=== PATIENT | female | born 1960 | race African-American/Black ===

== ENCOUNTER 2019-02-13 04:26 | Emergency (ER) | payer MEDICAID ==
[~2019-02-13] VITALS: Ht 167.6 cm; Wt 72.6 kg
[2019-02-13 05:27] LABS: Basophils # (auto) 0.1 uL; Basophils % (auto) 1.8 % (0.0-2.0); Eosinophils # (auto) 0.3 uL; Eosinophils % (auto) 4.9 % (0.0-7.0); Hematocrit 40.3 % (36.0-46.0); Hemoglobin 13.7 g/dL (12.2-16.2); Lymphocytes # (auto) 2.6 uL; Mean Corpuscular Hgb Conc. 33.9 g/dL (32.0-36.0); Mean Corpuscular Volume 91.6 fL (80.0-100.0); Monocytes # (auto) 0.7 uL; Monocytes % (auto) 12.5 % (0.0-12.0); Neutrophils # (auto) 2.3 uL; Neutrophils % (auto) 37.8 % (37.0-80.0); Nucleated Red Blood Cells % 0.1 %; Platelet Count (auto) 256 10^3/uL (140-450)
[2019-02-13 05:46] LABS: Alanine Aminotransferase 24 U/L (13-56); Albumin 3.6 g/dL (3.4-5.0); Anion Gap 7 (5-15); Aspartate Aminotransferase 13 U/L (15-37); Blood Urea Nitrogen 18 mg/dL (7-18); Calcium 8.3 mg/dL (8.5-10.1); Carbon Dioxide 26 mmol/L (21-32); Chloride 106 mmol/L (98-107); GFR African American 82 mL/min; GFR Non-African American 68 mL/min; Glucose 95 mg/dL (74-106); Magnesium 2.2 mg/dL (1.6-2.6); Potassium 3.5 mmol/L (3.5-5.1); Sodium 139 mmol/L (136-145)
[2019-02-13 05:51] LABS: Alkaline Phosphatase 62 U/L (45-117); Bilirubin, Total 0.5 mg/dL (0.2-1.0); Total Protein 6.7 g/dL (6.4-8.2)
[2019-02-13 08:13] LABS: Urine Bacteria FEW /hpf (None Seen); Urine Blood Negative /uL (Negative); Urine Hyaline Cast FEW /lpf (0 - 2); Urine Specific Gravity 1.015 (1.001-1.035); Urine WBC 3 /hpf (0 - 5)
[2019-02-13] MEDS ORDERED: MORPHINE SULF INJ 2 MG/ML SYRINGE 1ML IV ONE (08:15)
[2019-02-13] MEDS ORDERED: ONDANSETRON HCL 4 MG/2 ML VIAL IV ONE (08:15)
[2019-02-13 11:30] VITALS: BP 134/87
== END 2019-02-13 13:11 | disposition home or self-care (01) ==
LOC: EDUNIT# 04:26 → EDBD 04:26 → ER 04:26
DX: R07.89 Other chest pain (principal); M94.0 Chondrocostal junction syndrome [Tietze]; I10 Essential (primary) hypertension; Z88.0 Allergy status to penicillin
CPT/HCPCS: 36415; 71045; 80053; 81001; 83735; 83880; 84484; 85025; 93005; 96374; 96375; 99284; J2270; J2405

== ENCOUNTER 2019-04-05 11:24 | Emergency (ER) | payer MEDICAID ==
[~2019-04-05] VITALS: Ht 172.7 cm; Wt 106.6 kg
[2019-04-05] MEDS ORDERED: cloNIDine HCL 0.1 MG TAB PO ONE (11:30)
[2019-04-05 12:48] LABS: Basophils # (auto) 0.1 uL; Eosinophils # (auto) 0.1 uL; Eosinophils % (auto) 1.6 % (0.0-7.0); Hematocrit 44.2 % (36.0-46.0); Hemoglobin 14.3 g/dL (12.2-16.2); Lymphocytes # (auto) 1.9 uL; Lymphocytes % (auto) 36.3 % (10.0-50.0); Mean Corpuscular Hemoglobin 30.7 pg (28.0-32.0); Mean Corpuscular Hgb Conc. 32.4 g/dL (32.0-36.0); Monocytes # (auto) 0.4 uL; Monocytes % (auto) 7.7 % (0.0-12.0); Neutrophils # (auto) 2.8 uL; Neutrophils % (auto) 53.4 % (37.0-80.0); Nucleated Red Blood Cells % 0.1 %; Platelet Count (auto) 302 10^3/uL (140-450); Red Blood Cells 4.66 10^6/uL (4.0-5.20); White Blood Cell 5.3 10^3/uL (4.4-10.8)
[2019-04-05 13:18] VITALS: BP 136/88
[2019-04-05 13:38] LABS: Albumin 3.7 g/dL (3.4-5.0); Anion Gap 4 (5-15); Blood Urea Nitrogen 16 mg/dL (7-18); Carbon Dioxide 29 mmol/L (21-32); Chloride 106 mmol/L (98-107); Glucose 143 mg/dL (74-106); Potassium 3.9 mmol/L (3.5-5.1); Sodium 139 mmol/L (136-145)
[2019-04-05 13:43] LABS: Alanine Aminotransferase 26 U/L (13-56); Alkaline Phosphatase 64 U/L (45-117); Aspartate Aminotransferase 18 U/L (15-37); Bilirubin, Total 0.4 mg/dL (0.2-1.0); GFR African American 89 mL/min; GFR Non-African American 74 mL/min; Total Protein 7.3 g/dL (6.4-8.2)
[2019-04-05 14:13] LABS: Urine Bacteria NONE SEEN /hpf (None Seen); Urine Blood Negative /uL (Negative); Urine Mucus FEW (None Seen); Urine Specific Gravity 1.022 (1.001-1.035); Urine WBC 9 /hpf (0 - 5)
== END 2019-04-05 14:47 | disposition home or self-care (01) ==
LOC: EDBD 11:24 → ER 11:27
DX: R42 Dizziness and giddiness (principal); I10 Essential (primary) hypertension; J45.909 Unspecified asthma, uncomplicated
CPT/HCPCS: 36415; 70450; 71045; 80053; 81001; 84484; 85025

== ENCOUNTER 2020-07-14 07:13 | Emergency (ER) | payer MEDICARE, MEDICAID ==
[~2020-07-14] VITALS: Ht 172.7 cm; Wt 93.0 kg
[2020-07-14 08:57] LABS: Basophils # (auto) 0.1 10 ^3/uL (0-0.2); Basophils % (auto) 0.9 % (0.0-2.0); Eosinophils # (auto) 0.2 10 ^3/uL (0-0.8); Eosinophils % (auto) 3.1 % (0.0-7.0); Hematocrit 42.6 % (36.0-46.0); Hemoglobin 13.9 g/dL (12.2-16.2); Lymphocytes # (auto) 2.8 10 ^3/uL (0.4-5.4); Lymphocytes % (auto) 48.7 % (10.0-50.0); Mean Corpuscular Hemoglobin 30.8 pg (28.0-32.0); Mean Corpuscular Hgb Conc. 32.7 g/dL (32.0-36.0); Mean Corpuscular Volume 94.4 fL (80.0-100.0); Monocytes # (auto) 0.6 10 ^3/uL (0-1.3); Monocytes % (auto) 10.8 % (0.0-12.0); Neutrophils # (auto) 2.1 10 ^3/uL (1.6-8.6); Neutrophils % (auto) 36.5 % (37.0-80.0); Nucleated Red Blood Cells % 0.2 %; Platelet Count (auto) 363 10^3/uL (140-450); Red Blood Cells 4.51 10^6/uL (4.0-5.20); White Blood Cell 5.8 10^3/uL (4.4-10.8)
[2020-07-14 09:22] LABS: Albumin 3.5 g/dL (3.4-5.0); Anion Gap 9 (5-15); Blood Urea Nitrogen 21 mg/dL (7-18); Calcium 8.9 mg/dL (8.5-10.1); Carbon Dioxide 26 mmol/L (21-32); Chloride 106 mmol/L (98-107); Glucose 114 mg/dL (74-106); Potassium 3.5 mmol/L (3.5-5.1); Sodium 141 mmol/L (136-145)
[2020-07-14 09:30] LABS: Alanine Aminotransferase 21 U/L (13-56); Alkaline Phosphatase 52 U/L (45-117); Aspartate Aminotransferase 14 U/L (15-37); BUN/Creatinine Ratio 22.6; Bilirubin, Total 0.3 mg/dL (0.2-1.0); GFR African American 79 mL/min; GFR Non-African American 65 mL/min; Total Protein 7.1 g/dL (6.4-8.2)
[2020-07-14 10:49] VITALS: BP 106/72
== END 2020-07-14 10:35 | disposition home or self-care (01) ==
LOC: ER 07:13
DX: F41.9 Anxiety disorder, unspecified (principal); J45.909 Unspecified asthma, uncomplicated; I10 Essential (primary) hypertension; Z88.0 Allergy status to penicillin; Z20.822 Contact with and (suspected) exposure to COVID-19
CPT/HCPCS: 36415; 71046; 80053; 84484; 85025; 87426; 93005

== ENCOUNTER 2020-09-26 06:03 | Inpatient (IN) | payer MEDICARE, MEDICAID ==
[~2020-09-26] VITALS: Ht 172.7 cm; Wt 103.0 kg
[2020-09-26 07:13] LABS: Basophils # (auto) 0 10 ^3/uL (0-0.2); Basophils % (auto) 0.6 % (0.0-2.0); Eosinophils # (auto) 0.2 10 ^3/uL (0-0.8); Eosinophils % (auto) 3.2 % (0.0-7.0); Hemoglobin 13.4 g/dL (12.2-16.2); Lymphocytes # (auto) 2.3 10 ^3/uL (0.4-5.4); Lymphocytes % (auto) 31.8 % (10.0-50.0); Mean Corpuscular Hemoglobin 32.1 pg (28.0-32.0); Mean Corpuscular Hgb Conc. 34.4 g/dL (32.0-36.0); Mean Corpuscular Volume 93.3 fL (80.0-100.0); Monocytes # (auto) 0.8 10 ^3/uL (0-1.3); Monocytes % (auto) 10.7 % (0.0-12.0); Neutrophils # (auto) 3.9 10 ^3/uL (1.6-8.6); Neutrophils % (auto) 53.7 % (37.0-80.0); Nucleated Red Blood Cells % 0.1 %; Platelet Count (auto) 400 10^3/uL (140-450); Red Blood Cells 4.18 10^6/uL (4.0-5.20); Red Cell Distribution Width 12.6 % (11.8-14.3); White Blood Cell 7.3 10^3/uL (4.4-10.8)
[2020-09-26 07:29] LABS: Chloride 113 mmol/L (98-107); Potassium 3.6 mmol/L (3.5-5.1); Sodium 142 mmol/L (136-145)
[2020-09-26 07:45] LABS: Alanine Aminotransferase 23 U/L (13-56); Albumin 3.4 g/dL (3.4-5.0); Alkaline Phosphatase 55 U/L (45-117); Anion Gap 5 (5-15); Aspartate Aminotransferase 16 U/L (15-37); BUN/Creatinine Ratio 27.5; Bilirubin, Total 0.4 mg/dL (0.2-1.0); Blood Urea Nitrogen 22 mg/dL (7-18); Calcium 8.4 mg/dL (8.5-10.1); Carbon Dioxide 24 mmol/L (21-32); GFR African American 94 mL/min; GFR Non-African American 78 mL/min; Glucose 108 mg/dL (74-106); Total Protein 6.9 g/dL (6.4-8.2)
[2020-09-26] MEDS ORDERED: FUROSEMIDE 40 MG/4 ML VIAL IV ONE (07:45)
[2020-09-26 09:06] LABS: Urine Bacteria MOD /hpf (None Seen); Urine Blood TRACE /uL (Negative); Urine Specific Gravity 1.013 (1.001-1.035); Urine WBC 261 /hpf (0 - 5)
[2020-09-26] MEDS ORDERED: ACETAMINOPHEN 500 MG TAB PO PRN (10:15)
[2020-09-26] MEDS ORDERED: MORPHINE SULF INJ 2 MG/ML SYRINGE 1ML IV PRN (10:15)
[2020-09-26] MEDS ORDERED: HYDROcodone-ACET 5/325MG TAB PO PRN (10:15)
[2020-09-26] MEDS ORDERED: IPRATROPIUM BROM 0.5 MG/2.5ML INH SOL NEB ONE (10:15)
[2020-09-26] MEDS ORDERED: ALBUTEROL SULF 2.5 MG/0.5ML(0.5%) NEB SOLN NEB ONE (10:15)
[2020-09-26] MEDS ORDERED: ONDANSETRON HCL 4 MG/2 ML VIAL IV PRN (10:15)
[2020-09-26] MEDS ORDERED: DOCUSATE SOD 100 MG CAP PO PRN (10:15)
[2020-09-26] MEDS ORDERED: methylPREDNISolone SOD SUCC 125 MG/2 ML VL IV ONE (10:15)
[2020-09-26] MEDS ORDERED: NITROGLYCERIN 0.4 MG SL TAB SL PRN (10:15)
[2020-09-26] MEDS: cefTRIAXone 1GM/50ML D5W 50 ML IV SCH (10:28)
[2020-09-26 10:52] LABS: Barbiturate Scree,Urine NEGATIVE (NEGATIVE); Benzodiazephine Screen, Urine NEGATIVE (NEGATIVE); Cannabinoid Screen, Urine NEGATIVE (NEGATIVE); Cocaine Screen, Urine NEGATIVE (NEGATIVE); Opiate Scree,Urine POSITIVE (NEGATIVE); Phencyclidine Screen, Urine NEGATIVE (NEGATIVE)
[2020-09-26 11:00] LABS: Cholesterol 180 mg/dL (< 200); HDL Cholesterol 53 mg/dL (40-59); LDL Cholesterol 111 mg/dL (< 100); Triglycerides 160 mg/dL (< 150)
[2020-09-26 11:03] LABS: Amphetamine Screen, Urine NEGATIVE (NEGATIVE)
[2020-09-26 11:07] VITALS: BP 122/71
[2020-09-26] MEDS: IPRATROPIUM BROM 0.5 MG/2.5ML INH SOL NEB SCH ×2 (11:27→19:10)
[2020-09-26] MEDS: ALBUTEROL SULF 2.5 MG/0.5ML(0.5%) NEB SOLN NEB SCH ×2 (11:27→19:09)
[2020-09-26 12:00] VITALS: BP 122/71
[2020-09-26 17:30] VITALS: BP 142/75
[2020-09-26] MEDS ORDERED: METO25TA93 PO (17:52)
[2020-09-26] MEDS ORDERED: AMLO-489 PO (17:52)
[2020-09-26] MEDS ORDERED: FURO20TA3 PO (17:52)
[2020-09-26] MEDS ORDERED: HYDR-4798 PO (17:52)
[2020-09-26] MEDS ORDERED: LOSA-39 PO (17:52)
[2020-09-26] MEDS ORDERED: CLON0.2D6 PO (17:52)
[2020-09-26] MEDS: HYDROcodone-ACET 10/325MG TAB PO PRN (18:52)
[2020-09-26] MEDS: BUDESONIDE (INHALATION) 0.5 MG/2 ML NEB NEB SCH (19:09)
[2020-09-26] MEDS ORDERED: hydrALAZINE HCL 20 MG/ML VL IV PRN (19:30)
[2020-09-26 22:00] VITALS: BP 115/65
[2020-09-26] MEDS: MORPHINE SULF INJ 2 MG/ML SYRINGE 1ML IV PRN (23:41)
[2020-09-27] MEDS: HYDROcodone-ACET 10/325MG TAB PO PRN ×4 (01:36→17:34)
[2020-09-27] MEDS: MORPHINE SULF INJ 2 MG/ML SYRINGE 1ML IV PRN (06:23)
[2020-09-27] MEDS: ALBUTEROL SULF 2.5 MG/0.5ML(0.5%) NEB SOLN NEB SCH ×3 (07:21→18:13)
[2020-09-27] MEDS: IPRATROPIUM BROM 0.5 MG/2.5ML INH SOL NEB SCH ×3 (07:21→18:13)
[2020-09-27] MEDS: BUDESONIDE (INHALATION) 0.5 MG/2 ML NEB NEB SCH ×2 (07:22→18:13)
[2020-09-27 09:00] VITALS: BP 133/75
[2020-09-27] MEDS ORDERED: cloNIDine HCL 0.1 MG TAB PO ONE (10:00)
[2020-09-27] MEDS: cefTRIAXone 1GM/50ML D5W 50 ML IV SCH (10:08)
[2020-09-27] MEDS: FUROSEMIDE 20 MG TAB PO SCH (10:09)
[2020-09-27] MEDS: METOPROLOL SUCCINATE XL 50 MG TAB PO SCH (10:10)
[2020-09-27] MEDS: LOSARTAN POTASSIUM 50 MG TAB PO SCH (10:10)
[2020-09-27] MEDS: cloNIDine HCL 0.1 MG TAB PO SCH (10:12)
[2020-09-27] MEDS: FAMOTIDINE 20 MG TAB PO SCH (10:12)
[2020-09-27] MEDS: amLODIPine BESYLATE 5 MG TAB PO SCH (10:12)
[2020-09-27] MEDS ORDERED: methylPREDNISolone SOD SUCC 125 MG/2 ML VL IV ONE (11:00)
[2020-09-27] MEDS ORDERED: AZITHROMYCIN 250 MG TAB PO ONE (11:00)
[2020-09-27 13:00] VITALS: BP 117/79
[2020-09-27 17:00] VITALS: BP 115/65
[2020-09-27] MEDS: methylPREDNISolone SOD SUCC 40 MG/ML VL IV SCH (21:18)
[2020-09-27 22:00] VITALS: BP 127/71
[2020-09-28] MEDS: HYDROcodone-ACET 10/325MG TAB PO PRN ×2 (02:38→09:03)
[2020-09-28 05:00] VITALS: BP 141/81
[2020-09-28 05:56] LABS: Calcium 9.2 mg/dL (8.5-10.1); Potassium 3.8 mmol/L (3.5-5.1)
[2020-09-28 05:58] LABS: BUN/Creatinine Ratio 28.6
[2020-09-28] MEDS: IPRATROPIUM BROM 0.5 MG/2.5ML INH SOL NEB SCH (06:29)
[2020-09-28] MEDS: BUDESONIDE (INHALATION) 0.5 MG/2 ML NEB NEB SCH (06:30)
[2020-09-28] MEDS: ALBUTEROL SULF 2.5 MG/0.5ML(0.5%) NEB SOLN NEB SCH (06:30)
[2020-09-28 08:36] VITALS: BP 154/97
[2020-09-28] MEDS: FAMOTIDINE 20 MG TAB PO SCH (09:06)
[2020-09-28] MEDS: FUROSEMIDE 20 MG TAB PO SCH (09:07)
[2020-09-28] MEDS: cloNIDine HCL 0.1 MG TAB PO SCH ×2 (09:07→10:07)
[2020-09-28] MEDS: amLODIPine BESYLATE 5 MG TAB PO SCH (09:08)
[2020-09-28] MEDS: cefTRIAXone 1GM/50ML D5W 50 ML IV SCH (09:09)
[2020-09-28] MEDS: LOSARTAN POTASSIUM 50 MG TAB PO SCH (09:09)
[2020-09-28] MEDS: METOPROLOL SUCCINATE XL 50 MG TAB PO SCH (09:09)
[2020-09-28] MEDS ORDERED: AZITHROMYCIN 250 MG TAB PO SCH (10:00)
[2020-09-28 10:56] VITALS: BP 154/97
[2020-09-28] MEDS: methylPREDNISolone SOD SUCC 40 MG/ML VL IV SCH (13:16)
== END 2020-09-28 11:30 | disposition home or self-care (01) | DRG 291 ==
LOC: ER 06:03 → TELE 10:09 → TELE-CENTR 11:51
PROVIDERS: ADMIT Nurse Practitioner Acute Care; ATTEND Internal Medicine
DX: I11.0 Hypertensive heart disease with heart failure (principal); J18.9 Pneumonia, unspecified organism; I50.31 Acute diastolic (congestive) heart failure; J44.1 Chronic obstructive pulmonary disease with (acute) exacerbation; N39.0 Urinary tract infection, site not specified; J44.0 Chronic obstructive pulmonary disease with (acute) lower respiratory infection; E66.9 Obesity, unspecified; G89.29 Other chronic pain; M19.90 Unspecified osteoarthritis, unspecified site; Z20.822 Contact with and (suspected) exposure to COVID-19; Z86.711 Personal history of pulmonary embolism; Z91.14 Patient's other noncompliance with medication regimen; Z86.16 Personal history of COVID-19; Z72.0 Tobacco use; Z88.0 Allergy status to penicillin; Z68.32 Body mass index [BMI] 32.0-32.9, adult
CPT/HCPCS: 36415; 71045; 80048; 80053; 80061; 80307; 81001; 83036; 83880; 84443; 84484; 85025; 85379; 85652; 87086; 87426; 93005; 93306; 93970; 94640; 96365; 96375; G0378; J0696

== ENCOUNTER 2020-12-26 22:31 | Emergency (ER) | payer OTHER, MEDICAID ==
[~2020-12-26] VITALS: Ht 170.2 cm; Wt 120.2 kg
[2020-12-26 22:31] VITALS: BP 141/92
[~2020-12-26 22:31] MED LIST: AMLO-489 PO; CLON0.2D6 PO; FURO20TA3 PO; HYDR-4798 PO; LOSA-39 PO; METO25TA93 PO
== END 2020-12-27 07:25 | disposition left against medical advice (07) ==
LOC: ER 22:31
DX: M79.604 Pain in right leg (principal); R20.0 Anesthesia of skin; Z53.21 Procedure and treatment not carried out due to patient leaving prior to being seen by health care provider
CPT/HCPCS: 93971

== ENCOUNTER → 2021-09-19 | Outpatient (CLI) | payer MEDICARE, MEDICAID | END | disposition home or self-care (01) | LOC: Rad HDHVI 14:01 | PROVIDERS: ATTEND Internal Medicine Cardiovascular Disease | DX: I11.0 Hypertensive heart disease with heart failure (principal); I50.22 Chronic systolic (congestive) heart failure | CPT/HCPCS: 93306 ==

== ENCOUNTER → 2021-10-10 | Outpatient (CLI) | payer MEDICARE, MEDICAID ==
[~2021-10-10] VITALS: Ht 170.2 cm; Wt 99.8 kg
[~2021-10-10] MED LIST changes: +ADENOSINE 84 MG in GIVE UN-DILUTED 0 ML IV ONE; +ADENOSINE 90 MG/30 ML INJ IV ONE; +ALBUTEROL SULF 2.5 MG/0.5ML(0.5%) NEB SOLN ONE; +LORazepam 2MG/ML-1ML VIAL IV ONE; +LORazepam 2MG/ML-1ML VIAL ONE; +methylPREDNISolone SOD SUCC 125 MG/2 ML VL ONE
== END | disposition home or self-care (01) ==
LOC: Rad HDHVI 08:30
PROVIDERS: ATTEND Internal Medicine Cardiovascular Disease
DX: I27.20 Pulmonary hypertension, unspecified (principal); I26.99 Other pulmonary embolism without acute cor pulmonale; I10 Essential (primary) hypertension; J44.9 Chronic obstructive pulmonary disease, unspecified; R06.02 Shortness of breath; R07.89 Other chest pain; E78.5 Hyperlipidemia, unspecified; Z82.49 Family history of ischemic heart disease and other diseases of the circulatory system
CPT/HCPCS: 78452; 93005; 94640; 96374; 96375; A9500; J0153; J2060; J2930

== ENCOUNTER → 2021-10-16 | Outpatient (CLI) | payer MEDICARE, MEDICAID ==
[~2021-10-16] MED LIST changes: -ADENOSINE 84 MG in GIVE UN-DILUTED 0 ML IV ONE; -ADENOSINE 90 MG/30 ML INJ IV ONE; -ALBUTEROL SULF 2.5 MG/0.5ML(0.5%) NEB SOLN ONE; -LORazepam 2MG/ML-1ML VIAL IV ONE; -LORazepam 2MG/ML-1ML VIAL ONE; -methylPREDNISolone SOD SUCC 125 MG/2 ML VL ONE
[2021-10-16 16:00] LABS: Urine Blood Negative /uL (Negative); Urine Specific Gravity 1.023 (1.001-1.035)
[2021-10-16 16:08] LABS: Basophils # (auto) 0 10 ^3/uL (0-0.2); Basophils % (auto) 0.5 % (0.0-2.0); Eosinophils # (auto) 0.1 10 ^3/uL (0-0.8); Eosinophils % (auto) 1.6 % (0.0-7.0); Hemoglobin 13.4 g/dL (12.2-16.2); Lymphocytes # (auto) 2.1 10 ^3/uL (0.4-5.4); Lymphocytes % (auto) 32.7 % (10.0-50.0); Mean Corpuscular Hgb Conc. 33.6 g/dL (32.0-36.0); Mean Corpuscular Volume 95.3 fL (80.0-100.0); Monocytes # (auto) 0.7 10 ^3/uL (0-1.3); Monocytes % (auto) 10.3 % (0.0-12.0); Neutrophils # (auto) 3.5 10 ^3/uL (1.6-8.6); Neutrophils % (auto) 54.9 % (37.0-80.0); Nucleated Red Blood Cells % 0.1 %; Red Cell Distribution Width 12.9 % (11.8-14.3); White Blood Cell 6.4 10^3/uL (4.4-10.8)
[2021-10-16 16:15] LABS: Albumin 3.1 g/dL (3.4-5.0); Calcium 8.7 mg/dL (8.5-10.1); Potassium 3.9 mmol/L (3.5-5.1)
[2021-10-16 16:20] LABS: Free T4 (Free Thyroxine) 0.81 ng/dL (0.89-1.76)
[2021-10-16 16:21] LABS: BUN/Creatinine Ratio 21.3; Bilirubin, Total 0.3 mg/dL (0.2-1.0); Total Protein 6.5 g/dL (6.4-8.2)
== END | disposition home or self-care (01) ==
LOC: LAB 11:10
PROVIDERS: ATTEND Internal Medicine Cardiovascular Disease
DX: D64.9 Anemia, unspecified (principal); E11.9 Type 2 diabetes mellitus without complications; E55.9 Vitamin D deficiency, unspecified; I10 Essential (primary) hypertension; R00.2 Palpitations; R53.1 Weakness; D51.3 Other dietary vitamin B12 deficiency anemia; R30.0 Dysuria; R06.02 Shortness of breath; R06.2 Wheezing; R06.00 Dyspnea, unspecified
CPT/HCPCS: 36415; 80053; 80061; 81003; 82306; 82607; 83036; 83880; 84439; 84443; 85025

== ENCOUNTER → 2022-01-29 | Outpatient (CLI) | payer MEDICARE, MEDICAID ==
[~2022-01-29] MED LIST changes: +ALB5IS NEB; +BUDE1AER6 IN; +FORM20NE3 IN; +NALO1TAB4 PO; +PERCOT PO; +POTA-180 PO; +QUET50TA27 PO; +REVE175S IN; +SACU1TAB7 PO; +TIOT1AER IN
[2022-01-29 11:35] VITALS: BP 129/86
[2022-01-29 11:52] VITALS: BP 127/83
[2022-01-29 12:41] LABS: Basophils # (auto) 0 10 ^3/uL (0-0.2); Basophils % (auto) 0.5 % (0.0-2.0); Eosinophils # (auto) 0.1 10 ^3/uL (0-0.8); Eosinophils % (auto) 2.2 % (0.0-7.0); Hemoglobin 13.4 g/dL (12.2-16.2); Lymphocytes # (auto) 2.7 10 ^3/uL (0.4-5.4); Mean Corpuscular Hemoglobin 30.4 pg (28.0-32.0); Mean Corpuscular Hgb Conc. 31.9 g/dL (32.0-36.0); Mean Corpuscular Volume 95.4 fL (80.0-100.0); Monocytes # (auto) 0.7 10 ^3/uL (0-1.3); Monocytes % (auto) 11.6 % (0.0-12.0); Neutrophils # (auto) 2.2 10 ^3/uL (1.6-8.6); Neutrophils % (auto) 38.7 % (37.0-80.0); Nucleated Red Blood Cells % 0.2 %; Red Cell Distribution Width 12.7 % (11.8-14.3); White Blood Cell 5.7 10^3/uL (4.4-10.8)
[2022-01-29 12:52] LABS: BUN/Creatinine Ratio 18.9; Calcium 8.4 mg/dL (8.5-10.1); Potassium 3.4 mmol/L (3.5-5.1)
[2022-01-29 12:56] LABS: INR 0.99 (0.9-1.15); Partial Thromboplastin Time 29.2 sec (24.6-33.4)
== END | disposition home or self-care (01) ==
LOC: Rad HDHVI 11:12
PROVIDERS: ATTEND Internal Medicine Cardiovascular Disease
DX: Z01.818 Encounter for other preprocedural examination (principal); R94.31 Abnormal electrocardiogram [ECG] [EKG]; I10 Essential (primary) hypertension; R06.02 Shortness of breath; I25.10 Atherosclerotic heart disease of native coronary artery without angina pectoris; M47.814 Spondylosis without myelopathy or radiculopathy, thoracic region
CPT/HCPCS: 36415; 71046; 80048; 85025; 85610; 85730; 93005; G0463

== ENCOUNTER 2022-01-31 07:36 | Day surgery (SDC) | payer MEDICARE, MEDICAID ==
[~2022-01-31] VITALS: Ht 172.7 cm; Wt 105.2 kg
[~2022-01-31 07:36] MED LIST changes: -HYDR-4798 PO; -LOSA-39 PO
[2022-01-31] MEDS ORDERED: fentaNYL CITRATE 100 MCG/2 ML VL ONE (08:48)
[2022-01-31] MEDS ORDERED: SODIUM CHL 0.9% 0 ML ONE (08:48)
[2022-01-31] MEDS ORDERED: MIDAZOLAM HCL 2MG/2ML 2ml VIAL (1mg/ml) ONE (08:48)
[2022-01-31] MEDS ORDERED: ANGIOMAX 250 MG VIAL IV ONE (08:48)
[2022-01-31] MEDS ORDERED: VERAPAMIL 2.5MG/ML INJ 2ML VIAL IV ONE (09:12)
[2022-01-31] MEDS ORDERED: HEPARIN SODIUM (PORCINE) 5000 UNITS/ML 1ML VIAL ONE (09:12)
[2022-01-31 09:40] VITALS: BP 143/97
[2022-01-31 09:55] VITALS: BP 140/90
[2022-01-31 10:10] VITALS: BP 145/94
[2022-01-31 10:25] VITALS: BP 141/108
[2022-01-31 10:50] VITALS: BP 145/91
[2022-01-31 11:20] VITALS: BP 122/94
== END 2022-01-31 11:55 | disposition home or self-care (01) ==
LOC: CATH 07:36
PROVIDERS: ATTEND Internal Medicine Cardiovascular Disease
DX: R06.02 Shortness of breath (principal); I25.10 Atherosclerotic heart disease of native coronary artery without angina pectoris; I11.0 Hypertensive heart disease with heart failure; I50.9 Heart failure, unspecified; J44.9 Chronic obstructive pulmonary disease, unspecified; E78.5 Hyperlipidemia, unspecified; E66.01 Morbid (severe) obesity due to excess calories; I25.2 Old myocardial infarction; E11.9 Type 2 diabetes mellitus without complications; G47.30 Sleep apnea, unspecified; Z87.891 Personal history of nicotine dependence; Z20.822 Contact with and (suspected) exposure to COVID-19; Z68.35 Body mass index [BMI] 35.0-35.9, adult
CPT/HCPCS: 93456; J1644; J2250; J3010; J7050; U0003; 99152; 99153

== ENCOUNTER → 2022-06-13 | Outpatient (CLI) | payer MEDICARE, MEDICAID | END | disposition home or self-care (01) | LOC: Rad HDHVI 15:49 | PROVIDERS: ATTEND Internal Medicine Cardiovascular Disease | DX: I11.0 Hypertensive heart disease with heart failure (principal); I50.22 Chronic systolic (congestive) heart failure | CPT/HCPCS: 93306 ==

== ENCOUNTER → 2022-09-16 | Outpatient (CLI) | payer MEDICARE, MEDICAID | END | disposition home or self-care (01) | LOC: Rad HDHVI 10:06 | PROVIDERS: ATTEND Internal Medicine Cardiovascular Disease | DX: I65.22 Occlusion and stenosis of left carotid artery (principal); I10 Essential (primary) hypertension | CPT/HCPCS: 93880 ==

== ENCOUNTER → 2022-09-30 | Outpatient (CLI) | payer MEDICARE, MEDICAID ==
[~2022-09-30] MED LIST changes: +ATOR20TA50 PO; +CLON0.2T PO; +FLUT1AER3 IN; +PRED20TA2 PO; +RIVA20TA PO; +SACU1TAB4 PO
[2022-09-30 09:45] VITALS: BP 122/74
[2022-09-30 09:53] VITALS: BP 128/78
== END | disposition home or self-care (01) ==
LOC: Rad HDHVI 09:20
PROVIDERS: ATTEND Internal Medicine Cardiovascular Disease
DX: Z01.818 Encounter for other preprocedural examination (principal); I11.0 Hypertensive heart disease with heart failure; I50.33 Acute on chronic diastolic (congestive) heart failure; I27.20 Pulmonary hypertension, unspecified
CPT/HCPCS: 71046; 93005; G0463; 36415; 80048; 85025; 85610; 85730

== ENCOUNTER 2022-10-03 07:30 | Day surgery (SDC) | payer MEDICARE, MEDICAID ==
[2022-09-30 12:46] LABS: Basophils # (auto) 0.1 10 ^3/uL (0-0.2); Basophils % (auto) 0.9 % (0.0-2.0); Eosinophils # (auto) 0.1 10 ^3/uL (0-0.8); Eosinophils % (auto) 2.1 % (0.0-7.0); Hematocrit 37.9 % (36.0-46.0); Hemoglobin 12.6 g/dL (12.2-16.2); Lymphocytes # (auto) 2.5 10 ^3/uL (0.4-5.4); Lymphocytes % (auto) 44.2 % (10.0-50.0); Mean Corpuscular Hemoglobin 32.4 pg (28.0-32.0); Mean Corpuscular Hgb Conc. 33.2 g/dL (32.0-36.0); Mean Corpuscular Volume 97.7 fL (80.0-100.0); Monocytes # (auto) 0.7 10 ^3/uL (0-1.3); Monocytes % (auto) 11.8 % (0.0-12.0); Neutrophils # (auto) 2.3 10 ^3/uL (1.6-8.6); Nucleated Red Blood Cells % 0.1 %; Red Blood Cells 3.88 10^6/uL (4.0-5.20); Red Cell Distribution Width 12.3 % (11.8-14.3); White Blood Cell 5.6 10^3/uL (4.4-10.8)
[2022-09-30 13:28] LABS: INR 1.25 (0.9-1.15); Partial Thromboplastin Time 39.3 sec (24.6-33.4)
[2022-09-30 13:34] LABS: Calcium 8.6 mg/dL (8.5-10.1)
[2022-09-30 13:37] LABS: BUN/Creatinine Ratio 20.9 (10.0-20.0)
[2022-09-30 14:16] LABS: Potassium 3.6 mmol/L (3.5-5.1)
[~2022-10-03] VITALS: Ht 172.7 cm; Wt 91.6 kg
[~2022-10-03 07:30] MED LIST changes: -AMLO-489 PO; -BUDE1AER6 IN; -CLON0.2D6 PO; -FORM20NE3 IN; -PERCOT PO; -REVE175S IN; -SACU1TAB7 PO; -TIOT1AER IN
[2022-10-03] MEDS ORDERED: fentaNYL CITRATE 100 MCG/2 ML VL IV ONE (08:30)
[2022-10-03] MEDS ORDERED: MIDAZOLAM HCL 2MG/2ML 2ml VIAL (1mg/ml) IV ONE (08:30)
[2022-10-03 10:13] VITALS: BP 134/92
[2022-10-03 10:29] VITALS: BP 129/100
[2022-10-03 10:37] VITALS: BP 130/96
== END 2022-10-03 11:10 | disposition home or self-care (01) ==
LOC: CATH 07:30
PROVIDERS: ATTEND Internal Medicine Cardiovascular Disease
DX: I34.0 Nonrheumatic mitral (valve) insufficiency (principal); I11.0 Hypertensive heart disease with heart failure; I50.30 Unspecified diastolic (congestive) heart failure; J45.909 Unspecified asthma, uncomplicated; R06.02 Shortness of breath; Z79.899 Other long term (current) drug therapy; E66.01 Morbid (severe) obesity due to excess calories
CPT/HCPCS: 36415; 80048; 85025; 85610; 85730; 93312; J2250; J3010; J7040; 99152

== ENCOUNTER → 2023-12-01 | Outpatient (CLI) | payer MEDICARE, MEDICAID | END | disposition home or self-care (01) | LOC: Rad HDHVI 08:21 | PROVIDERS: ATTEND Internal Medicine Cardiovascular Disease | DX: I11.9 Hypertensive heart disease without heart failure (principal); R00.2 Palpitations | CPT/HCPCS: 93306 ==

== ENCOUNTER → 2023-12-01 | Outpatient (CLI) | payer MEDICARE, MEDICAID ==
[2023-12-01 10:32] LABS: Basophils # (auto) 0 10 ^3/uL (0-0.2); Basophils % (auto) 0.8 % (0.0-2.0); Eosinophils # (auto) 0.1 10 ^3/uL (0-0.8); Hematocrit 36.7 % (36.0-46.0); Hemoglobin 12.5 g/dL (12.2-16.2); Lymphocytes # (auto) 2.5 10 ^3/uL (0.4-5.4); Monocytes # (auto) 0.7 10 ^3/uL (0-1.3); Neutrophils # (auto) 2.6 10 ^3/uL (1.6-8.6); Red Cell Distribution Width 12.6 % (11.8-14.3); White Blood Cell 5.9 10^3/uL (4.4-10.8)
[2023-12-01 10:35] LABS: Eosinophils % (auto) 1.3 % (0.0-7.0); Lymphocytes % (auto) 42.1 % (10.0-50.0); Mean Corpuscular Hemoglobin 34.5 pg (28.0-32.0); Mean Corpuscular Hgb Conc. 34.1 g/dL (32.0-36.0); Mean Corpuscular Volume 100.9 fL (80.0-100.0); Monocytes % (auto) 12.4 % (0.0-12.0); Neutrophils % (auto) 43.4 % (37.0-80.0); Nucleated Red Blood Cells % 0.1 %; Red Blood Cells 3.64 10^6/uL (4.0-5.20); Urine Blood Negative /uL (Negative); Urine Clarity Clear (Clear); Urine Color Yellow (Yellow); Urine Protein, UAD Negative (Negative); Urine Specific Gravity 1.025 (1.001-1.035); Urine Urobilinogen Normal (Negative); Urine pH 5.5 (5.0-9.0)
[2023-12-01 11:24] LABS: Alanine Aminotransferase 42 U/L (7-40); Albumin 3.8 g/dL (3.2-4.8); Alkaline Phosphatase 48 U/L (46-116); Anion Gap 5 (5-15); Aspartate Aminotransferase 23 U/L (13-40); BUN/Creatinine Ratio 13.4 (10.0-20.0); Bilirubin, Direct 0.2 mg/dL (<0.3); Bilirubin, Total 0.5 mg/dL (0.2-1.0); Blood Urea Nitrogen 13 mg/dL (9-23); Calcium 9.2 mg/dL (8.7-10.4); Carbon Dioxide 22 mmol/L (20-30); Chloride 114 mmol/L (98-107); Cholesterol 117 mg/dL (< 200); Glucose 97 mg/dL (74-106); HDL Cholesterol 54 mg/dL (40-59); LDL Cholesterol 54 mg/dL (< 100); Potassium 4.1 mmol/L (3.5-5.1); Sodium 141 mmol/L (136-145); Triglycerides 74 mg/dL (< 150)
[2023-12-01 11:25] LABS: Total Protein 5.8 g/dL (5.7-8.2)
== END | disposition home or self-care (01) ==
LOC: LAB 09:55
PROVIDERS: ATTEND Internal Medicine Cardiovascular Disease
DX: E11.9 Type 2 diabetes mellitus without complications (principal); D51.3 Other dietary vitamin B12 deficiency anemia; D64.9 Anemia, unspecified; E55.9 Vitamin D deficiency, unspecified; R00.2 Palpitations; R53.1 Weakness; R30.0 Dysuria
CPT/HCPCS: 36415; 80048; 80061; 80076; 81003; 83036; 84443; 85025

== ENCOUNTER → 2023-12-03 | Outpatient (CLI) | payer MEDICARE, MEDICAID | END | disposition home or self-care (01) | LOC: Rad HDHVI 08:12 | PROVIDERS: ATTEND Internal Medicine Cardiovascular Disease | DX: R42 Dizziness and giddiness (principal); I63.9 Cerebral infarction, unspecified | CPT/HCPCS: 70450; 93880 ==

== ENCOUNTER → 2023-12-10 | Outpatient (CLI) | payer MEDICARE, MEDICAID ==
[~2023-12-10] VITALS: Ht 172.7 cm; Wt 93.4 kg
== END | disposition home or self-care (01) ==
LOC: Rad HDHVI 08:48
PROVIDERS: ATTEND Internal Medicine Cardiovascular Disease
DX: I26.99 Other pulmonary embolism without acute cor pulmonale (principal); I25.2 Old myocardial infarction; I63.9 Cerebral infarction, unspecified; I11.0 Hypertensive heart disease with heart failure; I50.33 Acute on chronic diastolic (congestive) heart failure; J44.9 Chronic obstructive pulmonary disease, unspecified; R06.02 Shortness of breath; I27.21 Secondary pulmonary arterial hypertension; E78.5 Hyperlipidemia, unspecified; Z82.49 Family history of ischemic heart disease and other diseases of the circulatory system; F17.210 Nicotine dependence, cigarettes, uncomplicated
CPT/HCPCS: 78452; 93017; 96374; A9500

== ENCOUNTER → 2024-01-14 | Outpatient (CLI) | payer MEDICARE, MEDICAID | END | disposition home or self-care (01) | LOC: Rad HDHVI 14:34 | PROVIDERS: ATTEND Internal Medicine Cardiovascular Disease | DX: R60.9 Edema, unspecified (principal) | CPT/HCPCS: 93925 ==

== ENCOUNTER → 2024-04-19 | Outpatient (CLI) | payer MEDICARE, MEDICAID ==
[2024-04-19 11:10] VITALS: BP 130/86; PULSE 88; RESP 18; O2SAT 92
[2024-04-19 11:38] VITALS: BP 132/97; PULSE 87; RESP 18; O2SAT 94
== END | disposition home or self-care (01) ==
LOC: CHF HDHVI 11:13
PROVIDERS: ATTEND Internal Medicine Cardiovascular Disease
DX: I50.9 Heart failure, unspecified (principal)

== ENCOUNTER 2024-06-11 11:28 | Emergency (ER) | payer MEDICARE, MEDICAID ==
[~2024-06-11] VITALS: Ht 172.7 cm; Wt 84.0 kg
[2024-06-11 12:00] VITALS: PULSE 110; RESP 20; O2SAT 94
[2024-06-11 12:12] VITALS: TEMP 98.2
--- NOTE | 2024-06-11 12:43 | ED.PDOC ---
History of Present Illness HPI Comments 64-year-old female presents with a chief complaint of ecchymosis and laceration to her face s/p fall x 1 hour ago. Patient states that she fell in her room after tripping over a floor rug and hit the corner of her wooden bed frame on her left face. Patient reports that she had no LOC from the fall. Patient now has a swollen eyelid on the left-hand side and also denies any vision loss in her left eye. Patient was minimally able to open left eye and see clearly out of it. Patient has a 1cm laceration to her left forehead. No other symptoms or modifying factors present at this time. Chief Complaint: Facial Injury Time Seen by MD: 12:30 Primary Care Provider: DR DIAMOND Reviewed Notes: Medications, Allergies Allergies: Coded Allergies: Penicillins (Verified Allergy, Unknown, 01/29/22) Home Meds Reported Medications Clonidine Hydrochloride (Clonidine Hcl) 0.2 Mg Tab, 1 TAB PO QPM for HTN 09/30/22 Prednisone (Prednisone) 20 Mg Tab, 20 MG PO DAILY for COPD, MG 09/30/22 Atorvastatin Calcium (ATORVASTATIN CALCIUM) 20 Mg Tab, 1 TAB PO DAILY for CHOLESTEROL 09/30/22 Rivaroxaban (XARELTO) 20 Mg Tab, 1 TAB PO DAILY for BLOOD THINNER 09/30/22 Poocvckskfw-Knizxhgdaxdx-Txnrp (Trelegy Ellipta 100-62.5-25 Mcg/INH) 1 Aer Aer, 1 AER IN DAILY for COPD, AER 09/30/22 Sacubitril-Valsartan (Entresto 97-103 mg) 1 Tab Tab, 1 TAB PO BID for HF, TAB 09/30/22 Quetiapine Fumerate (QUETIAPINE FUMARATE) 50 Mg Tab, 50 MG PO DAILY for SLEEP, TAB 01/29/22 Potassium Chloride (Potassium Chloride ER) 20 Meq Tab, 20 MEQ PO DAILY for SUPPLEMENT, TAB 01/29/22 Naloxegol Oxalate (Movantik) 25 Mg Tab, 25 MG PO DAILY for CONSTPATION, TAB 01/29/22 Metoprolol Succinate (Metoprolol Succinate Er) 25 Mg Tab, 25 MG PO DAILY for HTN 01/29/22 Albuterol Sulfate (Ventolin) 2.5 Mg/0.5 Ml Nb, 1 VIAL NEB DAILY for COPD 01/29/22 Furosemide (Furosemide) 20 Mg Tab, 40 MG PO DAILY for edema 09/26/20 Information Source: Patient Mode of Arrival: Ambulatory Severity: Moderate Timing: Hours Duration: Since onset Prehospital treatment: None Past Medical History PAST MEDICAL HISTORY: CHF, CVA, HTN, PE Surgical History: Denies all surgeries MULTI SHARE PROGRAM COORDINATOR History: No Pertinent MULTI SHARE PROGRAM COORDINATOR History Family History Family History: Reviewed,noncontributory to illness Social History Smoker: Cigarettes Alcohol: Occasionally Drugs: Denies Drug Use Lives In: Home Constitutional: denies: chills, diaphoresis, fatigue, fever, malaise, sweats, weakness, others EENTM: denies: blurred vision, double vision, ear bleeding, ear discharge, ear drainage, ear pain, ear ringing, eye pain, eye redness, hearing loss, mouth pain, mouth swelling, nasal discharge, nose bleeding, nose congestion, nose pain, photophobia, tearing, throat pain, throat swelling, voice changes, others Respiratory: denies: cough, hemoptysis, orthopnea, SOB at rest, shortness of breath, SOB with excertion, stridor, wheezing, others Cardiovascular: denies: chest pain, dizzy spells, diaphoresis, Dyspnea on exertion, edema, irregular heart beat, left arm pain, lightheadedness, palpitations, PND, syncope, others Gastrointestinal: denies: abdomen distended, abdominal pain, blood streaked bowels, constipated, diarrhea, dysphagia, difficulty swallowing, hematemesis, melena, nausea, poor appetite, poor fluid intake, rectal bleeding, rectal pain, vomiting, others Genitourinary: denies: abnormal vagina bleeding, burning, dyspareunia, dysuria, flank pain, frequency, hematuria, incontinence, pain, , vagina discha rge, urgency, others Neurological: denies: dizziness, fainting, headache, left sided numbness, left sided weakness, numbness, paresthesia, pre-existing deficit, right sided numbness, right sided weakness, seizure, speech problems, tingling, tremors, weakness, others Musculoskeletal: reports: muscle pain (FACIAL PAIN); denies: back pain, gout, joint pain, joint swelling, muscle stiffness, neck pain, others Integumetry: reports: laceration; denies: bruises, change in color, change in hair/nails, dryness, lesions, lumps, rash, wounds, others Allergic/Immunocompromised: denies: Difficulty Healing, Frequent Infections, Hives, Itching, others Hematologic/Lymphatic: denies: anemia, blood clots, easy bleeding, easy bruising, swollen glands, others Endocrine: denies: excessive hunger, excessive sweating, excessive thirst, excessive urination, flushing, intolerance to cold, intolerance to heat, unexplained weight gain, unexplained weight loss, others Psychiatric: denies: anxiety, bipolar disorder, depression, hopeless, panic disorder, schizophrenia, sleepless, suicidal, others All Other Systems: Reviewed and Negative Physical Exam General Appearance: No Apparent Distress, Normal, Other (1cm Laceration to Left Forehead) HEENT: Eye Lid (L) (SWOLLEN), Pharynx Normal, TMs Normal Neck: Full Range of Motion, Non-Tender, Normal, Normal Inspection Respiratory: Chest Non-Tender, Lungs Clear, No Accessory Muscle Use, No Respiratory Distress, Normal Breath Sounds Cardiovascular: No Edema, No JVD, No Murmur, No Gallop, Normal Peripheral Pulses, Regular Rate/Rhythm Breast Exam: Deferred Gastrointestinal: No Organomegaly, Non Tender, No Pulsatile Mass, Normal Bowel Sounds, Soft Genitalia: Deferred Pelvic: Deferred Rectal: Deferred Extremities: No calf tenderness, Normal capillary refill, Normal inspection, Normal range of motion, Non-tender, No pedal edema Musculoskeletal : Apperance: Normal Neurologic: Alert, commercial credit specialist II-XII nml as Tested, No Motor Deficits, Normal Affect, Normal Mood, No Sensory Deficits Cerebellar Function: Normal Reflexes: Normal Skin: Dry, Normal Color, Warm Lymphatic: No Adenopathy Was a procedure done? Was a procedure done?: No Differential Dx Considerations may include: Orbital injury, intracranial hemorrhage, maxillofacial fracture, eye entrapment X-Ray, Labs, Meds, VS Vital Signs Date Time Temp Pulse Resp B/P (MAP) Pulse Ox O2 Delivery O2 Flow Rate FiO2 06/11/24 13:30 101 20 134/91 (105) 98 06/11/24 12:12 98.2 110 20 133/100 (111) 94 98.2 06/11/24 12:00 110 20 94 Room Air* 0 21 06/11/24 11:44 99.0 124 20 156/109 (125) 94 Lab Test 06/11/24 14:13 Range/Units White Blood Count 6.9 4.4-10.8 10^3/uL Red Blood Count 3.91 L 4.0-5.20 10^6/uL Hemoglobin 13.2 12.2-16.2 g/dL Hematocrit 40.1 36.0-46.0 % Mean Corpuscular Volume 102.6 H 80.0-100.0 fL Mean Corpuscular Hemoglobin 33.7 H 28.0-32.0 pg Mean Corpuscular Hemoglobin Concent 32.8 32.0-36.0 g/dL Red Cell Distribution Width 13.9 11.8-14.3 % Platelet Count 353 140-450 10^3/uL Mean Platelet Volume 6.8 L 6.9-10.8 fL Neutrophils (%) (Auto) 69.2 37.0-80.0 % Lymphocytes (%) (Auto) 18.4 10.0-50.0 % Monocytes (%) (Auto) 10.5 0.0-12.0 % Eosinophils (%) (Auto) 1.1 0.0-7.0 % Basophils (%) (Auto) 0.8 0.0-2.0 % Neutrophils # (Auto) 4.8 1.6-8.6 10 ^3/uL Lymphocytes # (Auto) 1.3 0.4-5.4 10 ^3/uL Monocytes # (Auto) 0.7 0-1.3 10 ^3/uL Eosinophils # (Auto) 0.1 0-0.8 10 ^3/uL Basophils # (Auto) 0.1 0-0.2 10 ^3/uL Nucleated Red Blood Cells 0.0 % Sodium Level 139 136-145 mmol/L Potassium Level 4.2 3.5-5.1 mmol/L Chloride Level 111 H 98-107 mmol/L Carbon Dioxide Level 23 20-31 mmol/L Anion Gap 5 5-15 Blood Urea Nitrogen 9 9-23 mg/dL Creatinine 0.98 0.550-1.02 mg/dL Glomerular Filtration Rate Calc 64 >90 mL/min BUN/Creatinine Ratio 9.2 L 10.0-20.0 Serum Glucose 97 74-106 mg/dL Calcium Level 9.3 8.7-10.4 mg/dL [facility] [id number] [place] [id number] Ph: [phone] DIAGNOSTIC IMAGING Diagnostic Imaging Report : [id number] Signed PATIENT: YVETTE KONG ACCT: [id number] UNIT: [id number] : 1960 LOC: ER ROOM / BED: / AGE / SEX: 64 / F ADM STATUS: REG ER SERVICE 1236 ORDERING PHYSICIAN: AGNIESZKA OLIVEIRA MD PROCEDURE(s): FAC2C - MAXILLOFACIAL WITHOUT REASON: ro fracture ORDER NUMBER(s): [id number], ACCESSION NUMBER(s): [id number] CLINICAL INFORMATION: 64 years old, Female; rule out fracture. No other clinical information provided. TECHNIQUE: Axial CT images of the maxillofacial region were obtained without contrast. Coronal and sagittal reformatted images were obtained, reviewed, and stored. One or more of the following dose reduction techniques were used: Automated exposure control. Adjustment of mA and/or kV according to patient size. CTDIvol = 67.11 mGy DLP = 1229.7 mGy-cm COMPARISON: None FINDINGS: The pterygoid plates and zygomatic arches are intact. Sinus wynn and orbital wynn are intact. Nasal bones and mandible are intact. No evidence of facial bone fracture. Moderate to large left periorbital hematoma extending laterally along the left zygomatic arch and extending to the left frontal scalp along the left side of the face to the level of the left mandible. Retrobulbar fat appears unremarkable with no orbital hematoma. No significant proptosis visualized. Globes and orbital structures appear intact. Paranasal sinuses are clear. IMPRESSION: 1. Moderate to large left periorbital hematoma extending along the left side of the face, left frontal scalp, and along the left zygomatic arch. No orbital hematoma. Globes and orbital structures appear otherwise intact. 2. No evidence of acute facial bone fracture. ATED BY: NIR FRYE DO DICTATED DATE/TIME: 06/11/241326 SIGNED BY: NIR FRYE DO SIGNED DATE/TIME: 06/11/241326 CC: [place] [id number] Ph: [phone] DIAGNOSTIC IMAGING Diagnostic Imaging Report : [id number] Signed PATIENT: YVETTE KONG ACCT: [id number] UNIT: [id number] : 1960 LOC: ER ROOM / BED: / AGE / SEX: 64 / F ADM STATUS: REG ER SERVICE 1236 ORDERING PHYSICIAN: AGNIESZKA OLIVEIRA MD PROCEDURE(s): HWOCT - HEAD WITHOUT CONTRAST REASON: ro bleed, on xarelto ORDER NUMBER(s): [id number], ACCESSION NUMBER(s): [id number] EXAM: CT HEAD WITHOUT CONTRAST HISTORY: ro bleed, on xarelto COMPARISON: CT HEAD WITHOUT CONTRAST on DOS: 12/03/23 TECHNIQUE: Axial images of the head were obtained and reformatted in coronal and sagittal planes. All CT scans at this medical facility are performed using dose modulation techniques as appropriate to a performed exam including the following: Automated exposure control was utilized; adjustment of the MA and/or KV according to patient size; and use of iterative reconstruction technique. CT Dose: CTDI volume is 62 mGy. Dose-length product is 1002 mGy*cm FINDINGS: There is no evidence of acute intracranial hemorrhage, mass, mass effect midline shift. There is no hydrocephalus or extra-axial fluid collection. There are moderate chronic small-vessel ischemic changes in the supratentorial white matte r. There is a small chronic infarct in the right parietal lobe. The pineda-white matter differentiation is otherwise maintained. There is moderate soft tissue swelling and edema in the left frontal temporal scalp and overlying the left orbit. The calvarium is intact. Visualized paranasal sinuses and mastoid air cells are clear. IMPRESSION: 1. No acute intracranial process. 2. Moderate soft tissue swelling and edema in the left frontal temporal scalp and overlying the left orbit. HS:Y ATED BY: ERIK MERCADO MD DICTATED DATE/TIME: 06/11/24 1301 SIGNED BY: ERIK MERCADO MD SIGNED DATE/TIME: 06/11/24 1301 CC: 64-year-old female presents here with injury to the left eye and face. Patient is on Xarelto. She has a 1 cm laceration to the left forehead. She also has significant ecchymosis to the left eye. I am barely able to open up her eye due to the swelling. However upon opening her eye she is able to see me clearly. At this time do not believe the orbit does involve. However CT maxillofacial and CT scan of the brain has been done. No evidence of acute hemorrhage on the CT brain, there was no evidence of acute fracture and CT max face. Patient is on Xarelto. At this time I did want to admit the patient for observation overnight given her significant injury to her face, for possible repeat CT of the brain in several hours. However patient stated that she needs to leave as her roommate is an Alzheimer's patient and she needs to take care of him. She attempted to find other coverage and care for him but unable to do so. At this time patient has left AMA. Advised her to return if she changes her mind. Patient understands the risk of including leaving including permanent disability and . Time of 1ST Reevaluation: 13:00 Reevaluation 1ST: Unchanged Patient Education/Counseling: Diagnosis, Treatment, Prognosis Family Education/Counseling: Diagnosis, Treatment, Prognosis Departure 1 Departure Time of Disposition: 14:50 Impression: Primary Impression: Periorbital hematoma of left eye Disposition: 07 LEFT AGAINST MEDICAL ADVICE Condition: Stable Discharged With: Self Critical Care Note Critical Care Time?: No Stability Stability form required: No Heart Score Heart Score: Heart Score Response (Comments) Value History N/A 0 EKG N/A 0 Age N/A 0 Risk Factors N/A 0 Troponin N/A 0 Total 0 I personally scribed for AGNIESZKA OLIVEIRA MD ([email or web address]) on 06/11/24 at 12:43. Electronically submitted by Ravinder Ramirez ([email or web address]). I personally scribed for AGNIESZKA OLIVEIRA MD ([email or web address]) on 06/11/24 at 14:50. Electronically submitted by Ravinder Ramirez ([email or web address]). AGNIESZKA OLIVEIRA MD Jun 11, 2024 12:43
--- NOTE | 2024-06-11 13:03 | DVH ---
EXAM: CT HEAD WITHOUT CONTRAST HISTORY: ro bleed, on xarelto COMPARISON: CT HEAD WITHOUT CONTRAST on DOS: 12/03/23 TECHNIQUE: Axial images of the head were obtained and reformatted in coronal and sagittal planes. All CT scans at this medical facility are performed using dose modulation techniques as appropriate t o a performed exam including the following: Automated exposure control was utilized; adjustment of th e MA and/or KV according to patient size; and use of iterative reconstruction technique. CT Dose: CTDI volume is 62 mGy. Dose-length product is 1002 mGy*cm FINDINGS: There is no evidence of acute intracranial hemorrhage, mass, mass effect midline shift. There is no h ydrocephalus or extra-axial fluid collection. There are moderate chronic small-vessel ischemic artis es in the supratentorial white matter. There is a small chronic infarct in the right parietal lobe. T he pineda-white matter differentiation is otherwise maintained. There is moderate soft tissue swelling and edema in the left frontal temporal scalp and overlying the left orbit. The calvarium is intact. Visualized paranasal sinuses and mastoid air cells are clear. IMPRESSION: 1. No acute intracranial process. 2. Moderate soft tissue swelling and edema in the left frontal temporal scalp and overlying the left orbit. HS:Y
[2024-06-11 13:30] VITALS: BP 134/91; PULSE 101; RESP 20; O2SAT 98
--- NOTE | 2024-06-11 13:30 | DVH ---
CLINICAL INFORMATION: 64 years old, Female; rule out fracture. No other clinical information provid ed. TECHNIQUE: Axial CT images of the maxillofacial region were obtained without contrast. Coronal and sa gittal reformatted images were obtained, reviewed, and stored. One or more of the following dose redu ction techniques were used: Automated exposure control. Adjustment of mA and/or kV according to patie nt size. CTDIvol = 67.11 mGy DLP = 1229.7 mGy-cm COMPARISON: None FINDINGS: The pterygoid plates and zygomatic arches are intact. Sinus wynn and orbital wynn are i ntact. Nasal bones and mandible are intact. No evidence of facial bone fracture. Moderate to large le ft periorbital hematoma extending laterally along the left zygomatic arch and extending to the left f rontal scalp along the left side of the face to the level of the left mandible. Retrobulbar fat appea rs unremarkable with no orbital hematoma. No significant proptosis visualized. Globes and orbital str uctures appear intact. Paranasal sinuses are clear. IMPRESSION: 1. Moderate to large left periorbital hematoma extending along the left side of the face, left fronta l scalp, and along the left zygomatic arch. No orbital hematoma. Globes and orbital structures appear otherwise intact. 2. No evidence of acute facial bone fracture.
[2024-06-11 14:44] LABS: Basophils # (auto) 0.1 10 ^3/uL (0-0.2); Basophils % (auto) 0.8 % (0.0-2.0); Eosinophils # (auto) 0.1 10 ^3/uL (0-0.8); Eosinophils % (auto) 1.1 % (0.0-7.0); Hematocrit 40.1 % (36.0-46.0); Hemoglobin 13.2 g/dL (12.2-16.2); Lymphocytes # (auto) 1.3 10 ^3/uL (0.4-5.4); Lymphocytes % (auto) 18.4 % (10.0-50.0); Mean Corpuscular Hemoglobin 33.7 pg (28.0-32.0); Mean Corpuscular Hgb Conc. 32.8 g/dL (32.0-36.0); Mean Corpuscular Volume 102.6 fL (80.0-100.0); Monocytes # (auto) 0.7 10 ^3/uL (0-1.3); Monocytes % (auto) 10.5 % (0.0-12.0); Neutrophils # (auto) 4.8 10 ^3/uL (1.6-8.6); Neutrophils % (auto) 69.2 % (37.0-80.0); Platelet Count (auto) 353 10^3/uL (140-450); Red Blood Cells 3.91 10^6/uL (4.0-5.20); Red Cell Distribution Width 13.9 % (11.8-14.3); White Blood Cell 6.9 10^3/uL (4.4-10.8)
[2024-06-11 14:46] LABS: Potassium 4.2 mmol/L (3.5-5.1); Sodium 139 mmol/L (136-145)
[2024-06-11 14:47] LABS: Anion Gap 5 (5-15); Calcium 9.3 mg/dL (8.7-10.4); Carbon Dioxide 23 mmol/L (20-31)
[2024-06-11 14:50] LABS: Chloride 111 mmol/L (98-107)
[2024-06-11 14:52] LABS: BUN/Creatinine Ratio 9.2 (10.0-20.0); Glucose 97 mg/dL (74-106)
[2024-06-11] MEDS ORDERED: TETANUS-DIPTH-ACEL PERTUSSIS 0.5ML SYR Tdap IM ONE (15:00)
[2024-06-11 15:18] LABS: Blood Urea Nitrogen 9 mg/dL (9-23)
== END 2024-06-11 14:56 | disposition left against medical advice (07) ==
LOC: ER 11:28
DX: S01.81XA Laceration without foreign body of other part of head, initial encounter (principal); I11.0 Hypertensive heart disease with heart failure; I50.9 Heart failure, unspecified; F17.210 Nicotine dependence, cigarettes, uncomplicated; Z79.01 Long term (current) use of anticoagulants; Z79.52 Long term (current) use of systemic steroids; Z79.899 Other long term (current) drug therapy; Z86.73 Personal history of transient ischemic attack (TIA), and cerebral infarction without residual deficits; Z88.0 Allergy status to penicillin; W22.03XA Walked into furniture, initial encounter; Y93.89 Activity, other specified; Y92.89 Other specified places as the place of occurrence of the external cause; Y99.8 Other external cause status
CPT/HCPCS: 36415; 70450; 70486; 80048; 85025

== ENCOUNTER 2024-06-23 13:42 | Inpatient (IN) | payer MEDICARE, MEDICAID ==
[~2024-06-23] VITALS: Ht 172.7 cm; Wt 78.6 kg
--- NOTE | 2024-06-23 14:21 | ED.PDOC ---
History of Present Illness HPI Comments 64-year-old female presents with a chief complaint of right hand numbness/pain x onset last night. Patient states that she fell asleep in a computer chair and her hand was compressed in the chair. Patient reports that she woke up and was unable to extend her right wrist. Patient denies any chest pain or SOB at this time. Patient is neuromuscularly intact besides the right wrist weakness. No reports of trauma or injuries. No other symptoms or modifying factors present at this time. Time Seen by MD: 14:15 Primary Care Provider: DR DIAMOND Reviewed Notes: Nurses Notes (Allergies to penicillin), Medications, Allergies Allergies: Coded Allergies: Penicillins (Verified Allergy, Unknown, 01/29/22) Home Meds Reported Medications Clonidine Hydrochloride (Clonidine Hcl) 0.2 Mg Tab, 1 TAB PO QPM for HTN 09/30/22 Prednisone (Prednisone) 20 Mg Tab, 20 MG PO DAILY for COPD, MG 09/30/22 Atorvastatin Calcium (ATORVASTATIN CALCIUM) 20 Mg Tab, 1 TAB PO DAILY for CHOLESTEROL 09/30/22 Rivaroxaban (XARELTO) 20 Mg Tab, 1 TAB PO DAILY for BLOOD THINNER 09/30/22 Zfxeegsdscv-Vfjwvhoqjukc-Rswxn (Trelegy Ellipta 100-62.5-25 Mcg/INH) 1 Aer Aer, 1 AER IN DAILY for COPD, AER 09/30/22 Sacubitril-Valsartan (Entresto 97-103 mg) 1 Tab Tab, 1 TAB PO BID for HF, TAB 09/30/22 Quetiapine Fumerate (QUETIAPINE FUMARATE) 50 Mg Tab, 50 MG PO DAILY for SLEEP, TAB 01/29/22 Potassium Chloride (Potassium Chloride ER) 20 Meq Tab, 20 MEQ PO DAILY for SUPPLEMENT, TAB 01/29/22 Naloxegol Oxalate (Movantik) 25 Mg Tab, 25 MG PO DAILY for CONSTPATION, TAB 01/29/22 Metoprolol Succinate (Metoprolol Succinate Er) 25 Mg Tab, 25 MG PO DAILY for HTN 01/29/22 Albuterol Sulfate (Ventolin) 2.5 Mg/0.5 Ml Nb, 1 VIAL NEB DAILY for COPD 01/29/22 Furosemide (Furosemide) 20 Mg Tab, 40 MG PO DAILY for edema 09/26/20 Information Source: Patient Mode of Arrival: Wheelchair Severity: Moderate Timing: Hours Duration: Since onset Prehospital treatment: None Past Medical History PAST MEDICAL HISTORY: CHF, CVA, HTN, PE Surgical History: Denies all surgeries GROUND SUPPORT AGENT History: No Pertinent GROUND SUPPORT AGENT History Family History Family History: Reviewed,noncontributory to illness Social History Smoker: Cigarettes Alcohol: Occasionally Drugs: Denies Drug Use Lives In: Home Constitutional: denies: chills, diaphoresis, fatigue, fever, malaise, sweats, weakness, others EENTM: denies: blurred vision, double vision, ear bleeding, ear discharge, ear drainage, ear pain, ear ringing, eye pain, eye redness, hearing loss, mouth pain, mouth swelling, nasal discharge, nose bleeding, nose congestion, nose pain, photophobia, tearing, throat pain, throat swelling, voice changes, others Respiratory: denies: cough, hemoptysis, orthopnea, SOB at rest, shortness of breath, SOB with excertion, stridor, wheezing, others Cardiovascular: denies: chest pain, dizzy spells, diaphoresis, Dyspnea on exertion, edema, irregular heart beat, left arm pain, lightheadedness, palpitations, PND, syncope, others Gastrointestinal: denies: abdomen distended, abdominal pain, blood streaked bowels, constipated, diarrhea, dysphagia, difficulty swallowing, hematemesis, melena, nausea, poor appetite, poor fluid intake, rectal bleeding, rectal pain, vomiting, others Genitourinary: denies: abnormal vagina bleeding, burning, dyspareunia, dysuria, flank pain, frequency, hematuria, incontinence, pain, , vagina discharge, urgency, others Neurological: denies: dizziness, fainting, headache, left sided numbness, left sided weakness, numbness, paresthesia, pre-existing deficit, right sided numbness, right sided weakness, seizure, speech problems, tingling, tremors, weakness, others Musculoskeletal: reports: muscle pain; denies: back pain, gout, joint pain, joint swelling, muscle stiffness, neck pain, others Integumetry: denies: bruises, change in color, change in hair/nails, dryness, laceration, lesions, lumps, rash, wounds, others Allergic/Immunocompromised: denies: Difficulty Healing, Frequent Infections, Hives, Itching, others Hematologic/Lymphatic: denies: anemia, blood clots, easy bleeding, easy bruising, swollen glands, others Endocrine: denies: excessive hunger, excessive sweating, excessive thirst, excessive urination, flushing, intolerance to cold, intolerance to heat, unexplained weight gain, unexplained weight loss, others Psychiatric: denies: anxiety, bipolar disorder, depression, hopeless, panic disorder, schizophrenia, sleepless, suicidal, others All Other Systems: Reviewed and Negative Physical Exam General Appearance: Mild Distress HEENT: Normal ENT Inspection, Pharynx Normal, TMs Normal Neck: Full Range of Motion, Non-Tender, Normal, Normal Inspection Respiratory: Chest Non-Tender, Lungs Clear, No Accessory Muscle Use, No Respiratory Distress, Normal Breath Sounds Cardiovascular: No Edema, No JVD, No Murmur, No Gallop, Normal Peripheral Pulses, Regular Rate/Rhythm Breast Exam: Deferred Gastrointestinal: No Organomegaly, Non Tender, No Pulsatile Mass, Normal Bowel Sounds, Soft Genitalia: Deferred Pelvic: Deferred Rectal: Deferred Extremities: No calf tenderness, Normal capillary refill, No pedal edema Musculoskeletal : Location: Right Extremity Location: Wrist Apperance: Limited ROM Neurologic: Alert, 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 Was a procedure done?: No Differential Dx Considerations may include: Wrist pain, CVA X-Ray, Labs, Meds, VS Vital Signs Date Time Temp Pulse Resp B/P (MAP) Pulse Ox O2 Delivery O2 Flow Rate FiO2 06/23/24 14:56 98.6 96 17 142/78 (99) 90 Lab Test 06/23/24 14:50 Range/Units White Blood Count 4.8 4.4-10.8 10^3/uL Red Blood Count 3.58 L 4.0-5.20 10^6/uL Hemoglobin 12.1 L 12.2-16.2 g/dL Hematocrit 36.5 36.0-46.0 % Mean Corpuscular Volume 101.7 H 80.0-100.0 fL Mean Corpuscular Hemoglobin 33.7 H 28.0-32.0 pg Mean Corpuscular Hemoglobin Concent 33.1 32.0-36.0 g/dL Red Cell Distribution Width 13.9 11.8-14.3 % Platelet Count 368 140-450 10^3/uL Mean Platelet Volume 6.6 L 6.9-10.8 fL Neutrophils (%) (Auto) 51.4 37.0-80.0 % Lymphocytes (%) (Auto) 32.5 10.0-50.0 % Monocytes (%) (Auto) 15.3 H 0.0-12.0 % Eosinophils (%) (Auto) 0.2 0.0-7.0 % Basophils (%) (Auto) 0.6 0.0-2.0 % Neutrophils # (Auto) 2.5 1.6-8.6 10 ^3/uL Lymphocytes # (Auto) 1.6 0.4-5.4 10 ^3/uL Monocytes # (Auto) 0.7 0-1.3 10 ^3/uL Eosinophils # (Auto) 0 0-0.8 10 ^3/uL Basophils # (Auto) 0 0-0.2 10 ^3/uL Nucleated Red Blood Cells 0.2 % Sodium Level 140 136-145 mmol/L Potassium Level 3.5 3.5-5.1 mmol/L Chloride Level 110 H 98-107 mmol/L Carbon Dioxide Level 22 20-31 mmol/L Anion Gap 8 5-15 Blood Urea Nitrogen 17 9-23 mg/dL Creatinine 1.10 H 0.550-1.02 mg/dL Glomerular Filtration Rate Calc 56 >90 mL/min BUN/Creatinine Ratio 15.5 10.0-20.0 Serum Glucose 104 74-106 mg/dL Calcium Level 8.8 8.7-10.4 mg/dL Head CT Scan Impression: No acute intracranial process Time of 1ST Reevaluation: 14:45 Reevaluation 1ST: Unchanged Patient Education/Counseling: Diagnosis, Treatment, Prognosis Family Education/Counseling: Diagnosis, Treatment, Prognosis Departure 1 Departure Time of Disposition: 16:29 Impression: Primary Impression: Right sided weakness Disposition: 09 ADMITTED INPATIENT Admit to: Med Surg Condition: Fair Critical Care Note Critical Care Time?: No Stability Stability form required: Yes Unstable for transfer: ED Physician Assesment (Clinical assesment) Heart Score Heart Score: Heart Score Response (Comments) Value History N/A 0 EKG N/A 0 Age N/A 0 Risk Factors N/A 0 Troponin N/A 0 Total 0 I personally scribed for COLEEN CELESTE MD ([email or web address]) on 06/23/24 at 14:21. Electronically submitted by Ravinder Ramirez ([email or web address]). I personally scribed for COLEEN CELESTE MD ([email or web address]) on 06/23/24 at 14:54. Electronically submitted by Ravinder Ramirez ([email or web address]). COLEEN CELESTE MD Jun 23, 2024 14:21
--- NOTE | 2024-06-23 14:52 | DVH ---
EXAM: CT HEAD WITHOUT CONTRAST HISTORY: right hand weakness COMPARISON: CT HEAD WITHOUT CONTRAST on DOS: 06/11/24, CT HEAD WITHOUT CONTRAST on DOS: 12/03/23 TECHNIQUE: Axial images of the head were obtained and reformatted in coronal and sagittal planes. All CT scans at this medical facility are performed using dose modulation techniques as appropriate t o a performed exam including the following: Automated exposure control was utilized; adjustment of th e MA and/or KV according to patient size; and use of iterative reconstruction technique. CT Dose: CTDI volume is 58 mGy. Dose-length product is 930 mGy*cm FINDINGS: There is no evidence of acute intracranial hemorrhage, mass, mass effect midline shift. There is no h ydrocephalus or extra-axial fluid collection. There are hypodense changes in the supratentorial whit e matter, particularly in the bilateral parietal lobe white matter. These likely represent chronic sm all-vessel ischemic changes. There is a small chronic infarct in the right parietal lobe. maintained. The visualized paranasal sinuses and mastoid air cells are clear. The calvarium is intact. IMPRESSION: 1. No acute intracranial process. HS:Y
[2024-06-23 15:08] LABS: Basophils # (auto) 0 10 ^3/uL (0-0.2); Basophils % (auto) 0.6 % (0.0-2.0); Eosinophils # (auto) 0 10 ^3/uL (0-0.8); Eosinophils % (auto) 0.2 % (0.0-7.0); Hematocrit 36.5 % (36.0-46.0); Hemoglobin 12.1 g/dL (12.2-16.2); Lymphocytes # (auto) 1.6 10 ^3/uL (0.4-5.4); Lymphocytes % (auto) 32.5 % (10.0-50.0); Mean Corpuscular Hemoglobin 33.7 pg (28.0-32.0); Mean Corpuscular Hgb Conc. 33.1 g/dL (32.0-36.0); Mean Corpuscular Volume 101.7 fL (80.0-100.0); Monocytes # (auto) 0.7 10 ^3/uL (0-1.3); Monocytes % (auto) 15.3 % (0.0-12.0); Neutrophils # (auto) 2.5 10 ^3/uL (1.6-8.6); Neutrophils % (auto) 51.4 % (37.0-80.0); Nucleated Red Blood Cells % 0.2 %; Platelet Count (auto) 368 10^3/uL (140-450); Red Blood Cells 3.58 10^6/uL (4.0-5.20); Red Cell Distribution Width 13.9 % (11.8-14.3); White Blood Cell 4.8 10^3/uL (4.4-10.8)
[2024-06-23 15:14] LABS: Anion Gap 8 (5-15); Carbon Dioxide 22 mmol/L (20-31); Potassium 3.5 mmol/L (3.5-5.1); Sodium 140 mmol/L (136-145)
[2024-06-23 15:15] LABS: Calcium 8.8 mg/dL (8.7-10.4)
[2024-06-23 15:20] LABS: BUN/Creatinine Ratio 15.5 (10.0-20.0); Blood Urea Nitrogen 17 mg/dL (9-23); Glucose 104 mg/dL (74-106)
[2024-06-23 15:22] LABS: Chloride 110 mmol/L (98-107)
--- NOTE | 2024-06-23 21:00 | DVHINCON2 ---
Date of service: Jun 23, [address] Cutler Reason for Consultation Right hand weakness History of Present Illness Ms. Manuel is a 64 years old female with a history of hypertension, congestive heart failure, stroke, pulmonary emboli, she came to the [facility] on 06/23/2024 with a chief company of right hand numbness. At this time, she was alert and fully oriented, she provided the following history In the morning on 06/22/2024, she woke up with numbness and weakness in the right arm and the leg, with a right wrist more affected, in that she was not able to extend the right wrist, meanwhile she was had numbness in the right arm than leg, her problem has not had improvement yet She was reports general weakness since yesterday morning On 2023, because of fainting driving, her grand children called 911 and she was brought to the [facility] ER and from there she was transferred to the [facility], where she had MRI scan and was admitted to a room for two days but with no treatment, on discharge, she was said to have stroke and was given aspirin, a later, she claimed I gave her cholesterol medication She had blood clot in the lungs in 2023 and she was on Eliquis at home WBC/HB/PLT/MCV, 06/23/2024: 4.8/12.1/368/101.7 BUN/CR, 06/23/2024: 17/1.1 HGB A1c, 12/01/2023: Bipolar one TG/HDL/LDL/HDL, 12/01/2023:74/117/54/54 CT head, 06/23/2024: No acute intracranial process (There is a small chronic infarct in the right parietal lobe) Past Medical History Hypertension, congestive heart failure, stroke, pulmonary emboli Past Surgical History No major surgeries Family History Reviewed,noncontributory to illness Social History She smokes, but no history of alcohol or recreational substance abuse Allergies: Coded Allergies: Penicillins (Verified Allergy, Unknown, 01/29/22) Home Meds Reported Medications Clonidine Hydrochloride (Clonidine Hcl) 0.2 Mg Tab, 1 TAB PO QPM for HTN 09/30/22 Prednisone (Prednisone) 20 Mg Tab, 20 MG PO DAILY for COPD, MG 09/30/22 Atorvastatin Calcium (ATORVASTATIN CALCIUM) 20 Mg Tab, 1 TAB PO DAILY for CHOLESTEROL 09/30/22 Rivaroxaban (XARELTO) 20 Mg Tab, 1 TAB PO DAILY for BLOOD THINNER 09/30/22 Sygectfdzon-Krgxphmhfpex-Weltx (Trelegy Ellipta 100-62.5-25 Mcg/INH) 1 Aer Aer, 1 AER IN DAILY for COPD, AER 09/30/22 Sacubitril-Valsartan (Entresto 97-103 mg) 1 Tab Tab, 1 TAB PO BID for HF, TAB 09/30/22 Quetiapine Fumerate (QUETIAPINE FUMARATE) 50 Mg Tab, 50 MG PO DAILY for SLEEP, TAB 01/29/22 Potassium Chloride (Potassium Chloride ER) 20 Meq Tab, 20 MEQ PO DAILY for S UPPLEMENT, TAB 01/29/22 Naloxegol Oxalate (Movantik) 25 Mg Tab, 25 MG PO DAILY for CONSTPATION, TAB 01/29/22 Metoprolol Succinate (Metoprolol Succinate Er) 25 Mg Tab, 25 MG PO DAILY for HTN 01/29/22 Albuterol Sulfate (Ventolin) 2.5 Mg/0.5 Ml Nb, 1 VIAL NEB DAILY for COPD 01/29/22 Furosemide (Furosemide) 20 Mg Tab, 40 MG PO DAILY for edema 09/26/20 Review of Systems As above, the other systems are negative Vital Signs Vital Signs Date Time Temp Pulse Resp B/P (MAP) Pulse Ox O2 Delivery O2 Flow Rate FiO2 06/23/24 16:53 98.9 95 16 153/90 (111) 91 98.9 Physical Exam GENERAL EXAM: General: the patient is well developed and nourished. No acute distress. HEENT: Normocephalic, neck is supple, no carotid bruits. No mass. RESPIRATORY: Normal respiratory effort with symmetrical lung expansion. Lungs clear to auscultation. CARDIOVASCULAR: Regular rate and rhythm with no murmurs. S1, S2. ABDOMEN: Soft, nontender, normal bowel sound NEUROLOGICAL: MENTAL STATUS: Awake and alert. Oriented to person, place, time and general circumstances. Able to give personal history SPEECH, LANGUAGE, HIGHER CORTICAL FUNCTION: no aphasia or dysathria. CRANIAL NERVES: #2: Intact visual moreira to confrontation. The optic discs were sharp. #3,4,6: Pupils are equal, round and reactive. EOMs full and conjugate. #5: Facial sensation intact in all three divisions bilaterally. Mandibular strength intact. #7: Facial muscles symmetrical and strength intact. #8: Hearing grossly normal to voice. #9,10: Uvula and soft palate rise in the midline. Swallow and voice are normal. #11: Trapezius and sternomastoid strength intact bilaterally. #12: Tongue midline. No fasciculations or atrophy. SENSATION: Sensation to touch and pinprick is fine MOTOR: Normal tone in the upper and lower extremity. Normal muscle bulk. No fasciculations. No abnormal movements or posturing. Muscle strength of the major groups in the left extremities is 5/5. Muscle strength of the major groups in the right extremities is 4-4/5 except for 2-3/5 in the right wrist and finger extensors REFLEXES: Deep tendon reflexes are symmetrical. No pathological reflexes. CEREBELLAR/COORDINATION: Finger to nose is unremarkable bilaterally. GAIT/STATION: deferred. Labs/Diagnostic Data Labs Test 06/23/24 14:50 Range/Units White Blood Count 4.8 4.4-10.8 10^3/uL Red Blood Count 3.58 L 4.0-5.20 10^6/uL Hemoglobin 12.1 L 12.2-16.2 g/dL Hematocrit 36.5 36.0-46.0 % Mean Corpuscular Volume 101.7 H 80.0-100.0 fL Mean Corpuscular Hemoglobin 33.7 H 28.0-32.0 pg Mean Corpuscular Hemoglobin Concent 33.1 32.0-36.0 g/dL Red Cell Distribution Width 13.9 11.8-14.3 % Platelet Count 368 140-450 10^3/uL Mean Platelet Volume 6.6 L 6.9-10.8 fL Neutrophils (%) (Auto) 51.4 37.0-80.0 % Lymphocytes (%) (Auto) 32.5 10.0-50.0 % Monocytes (%) (Auto) 15.3 H 0.0-12.0 % Eosinophils (%) (Auto) 0.2 0.0-7.0 % Basophils (%) (Auto) 0.6 0.0-2.0 % Neutrophils # (Auto) 2.5 1.6-8.6 10 ^3/uL Lymphocytes # (Auto) 1.6 0.4-5.4 10 ^3/uL Monocytes # (Auto) 0.7 0-1.3 10 ^3/uL Eosinophils # (Auto) 0 0-0.8 10 ^3/uL Basophils # (Auto) 0 0-0.2 10 ^3/uL Nucleated Red Blood Cells 0.2 % Sodium Level 140 136-145 mmol/L Potassium Level 3.5 3.5-5.1 mmol/L Chloride Level 110 H 98-107 mmol/L Carbon Dioxide Level 22 20-31 mmol/L Anion Gap 8 5-15 Blood Urea Nitrogen 17 9-23 mg/dL Creatinine 1.10 H 0.550-1.02 mg/dL Glomerular Filtration Rate Calc 56 >90 mL/min BUN/Creatinine Ratio 15.5 10.0-20.0 Serum Glucose 104 74-106 mg/dL Calcium Level 8.8 8.7-10.4 mg/dL Assessment Acute left sided weakness, paresthesia Rule out acute stroke Rule out right radial mononeuropathy History of pulmonary emboli Plan/Recommendation Monitoring Supportive treatment Telemetry UDS Lipitor profile Echocardiogram Carotid Doppler MR head Eliquis 5 mg b.i.d. Lipitor 20 mg daily More recommendation per clinical course I have asked our nurse staff to give her a gurney Prognosis: Poor This medical document was created using an electronic medical record system with [employer] dictation system. Although this document has been carefully reviewed, there may still be some phonetic and typographical errors. These areas are purely typographical due to imperfections of the software programs, and do not reflect any compromise in the patient's medical care. Plan discussed with: Patient, Other SHEN RODRIGUEZ MD Jun 23, 2024 21:00
[2024-06-23] MEDS ORDERED: LORazepam 2MG/ML-1ML VIAL IV PRN (22:15)
[2024-06-23 22:33] LABS: Triglycerides 120 mg/dL (< 150)
[2024-06-23 22:34] LABS: LDL Cholesterol 52 mg/dL (< 100)
[2024-06-23 22:36] LABS: Cholesterol 111 mg/dL (< 200)
[2024-06-23 22:46] LABS: HDL Cholesterol 37 mg/dL (40-59)
--- NOTE | 2024-06-23 23:29 | DVHHPRES ---
History of Present Illness Resident Creating Document: GISELLE WISEMAN RESDIENT History of Present Illness This is a 64-year-old female with past medical history of recurrent CVA, CHF, hypertension, pulmonary emboli, COPD/asthma, dementia, depression and anxiety came to the hospital due to left hand weakness and numbness. Per patient she had slipped on the chair last night, upon waking up in the morning she feels weak and numbness of the left hand which was not able with properly. She also reports decreased oral intake. She denies fever, cough, shortness of breath, headache, blurry vision, or any other sensory or motor deficits. PMHx: recurrent CVA, CHF, hypertension, pulmonary emboli, COPD/asthma, dementia, depression and anxiety Social history: She smokes cigarettes, denies any other drug use. Use walker due to bilateral lower limb weakness. Home medication: Gabapentin, clonidine, trilogy, Entresto, omeprazole, metoprolol, quetiapine, bumetanide, Xarelto, donepezil, atorvastatin Allergic history: Penicillins Review of Systems Review of Systems General: Reports decreased oral intake HEENT: No headaches, visiual changes, hearing loss, tinnitus, nasal congestion and discharge, and sore throat. Cardiovascular: Denies chest pain, palpitations, dyspnea on exertion, orthopnea, or claudication. Respiratory: No cough, and wheezing. Gastrointestinal: Denies nausea, vomiting, dysphagia, odynophagia, heartburn, abdominal pain, flatulence, bloating, diarrhea, constipation, change in stool, or blood in stool. Genitourinary: No dysuria, hematuria, discharge, frequency, urgency, nocturia, incontinence, and urinary retention. Endocrine: No heat or cold intolerance, polydipsia, polyuria, and polyphagia. Neurological: No dizziness, extremity weakness and numbness, tremors, gait disturbance, seizures, and memory impairment. Psychiatric: Denies depression, anxiety,or insomnia. Musculoskeletal: Reports right leg weakness and numbness Skin: No rashes, itching, skin lesion, changes in hair, nail, skin texture and breast. Hematologic/Lymphatic: Denies easy bruising, bleeding tendencies, or lymph node enlargement. Allergies: Coded Allergies: Penicillins (Verified Allergy, Unknown, 01/29/22) Medications Current Medications Medications Dose Ordered Sig/Evette Route Start Time Stop Time Status Last Admin Dose Admin Lorazepam 1 mg ONCE PRN IV 06/23/24 22:15 Patient Own Medication 5 mg BID PO 06/24/24 10:00 UNV Atorvastatin Calcium 20 mg DAILY PO 06/23/24 22:00 Exam Vital Signs Vital Signs Date Time Temp Pulse Resp B/P (MAP) Pulse Ox O2 Delivery O2 Flow Rate FiO2 06/23/24 16:53 98.9 95 16 153/90 (111) 91 98.9 Exam General Appearance: Alert, Oriented X3, Cooperative, No acute distress HEENT: Atraumatic, PERRLA, EOMI, Mucous membrane moist/pink Respiratory: Clear to auscultation, Normal air movement Cardiovascular: Regular rate, Normal S1, Normal S2, No murmurs, no chest wall tenderness Abdominal: Normal bowel sounds, Soft, No tenderness, No hepatospenomegaly, No masses Extremities: No clubbing, No cyanosis, No edema, Normal pulses, No tenderness/swelling Skin: No rashes, No breakdown, No significant lesion Neuro: Right upper limb power 2/5, hypotonic with normal sensation. Psych/Mental Status: Mental status NL, Mood NL Labs/Xrays Labs Test 06/23/24 14:50 Range/Units White Blood Count 4.8 4.4-10.8 10^3/uL Red Blood Count 3.58 L 4.0-5.20 10^6/uL Hemoglobin 12.1 L 12.2-16.2 g/dL Hematocrit 36.5 36.0-46.0 % Mean Corpuscular Volume 101.7 H 80.0-100.0 fL Mean Corpuscular Hemoglobin 33.7 H 28.0-32.0 pg Mean Corpuscular Hemoglobin Concent 33.1 32.0-36.0 g/dL Red Cell Distribution Width 13.9 11.8-14.3 % Platelet Count 368 140-450 10^3/uL Mean Platelet Volume 6.6 L 6.9-10.8 fL Neutrophils (%) (Auto) 51.4 37.0-80.0 % Lymphocytes (%) (Auto) 32.5 10.0-50.0 % Monocytes (%) (Auto) 15.3 H 0.0-12.0 % Eosinophils (%) (Auto) 0.2 0.0-7.0 % Basophils (%) (Auto) 0.6 0.0-2.0 % Neutrophils # (Auto) 2.5 1.6-8.6 10 ^3/uL Lymphocytes # (Auto) 1.6 0.4-5.4 10 ^3/uL Monocytes # (Auto) 0.7 0-1.3 10 ^3/uL Eosinophils # (Auto) 0 0-0.8 10 ^3/uL Basophils # (Auto) 0 0-0.2 10 ^3/uL Nucleated Red Blood Cells 0.2 % Sodium Level 140 136-145 mmol/L Potassium Level 3.5 3.5-5.1 mmol/L Chloride Level 110 H 98-107 mmol/L Carbon Dioxide Level 22 20-31 mmol/L Anion Gap 8 5-15 Blood Urea Nitrogen 17 9-23 mg/dL Creatinine 1.10 H 0.550-1.02 mg/dL Glomerular Filtration Rate Calc 56 >90 mL/min BUN/Creatinine Ratio 15.5 10.0-20.0 Serum Glucose 104 74-106 mg/dL Calcium Level 8.8 8.7-10.4 mg/dL Triglycerides Level 120 < 150 mg/dL Cholesterol Level 111 < 200 mg/dL LDL Cholesterol 52 < 100 mg/dL HDL Cholesterol 37 L 40-59 mg/dL Assessment/Plan Assessment/Plan Left-sided weakness, likely due to right radial motor neuropathy Possible acute ischemic stroke Head CT scan shows no acute intracranial abnormalities Neurology consulted, recommended head MRI Check lipid profile, echo and carotid Doppler Continue Eliquis Lipitor History of CHF History of hypertension History of pulmonary emboli History of asthma/COPD continue home medicine DIET: Cardiac diet DVT PROPHYLAXIS: On Eliquis GI PROPHYLAXIS:: Protonix CODE STATUS: Goal of care discussed for more than 2 anonymous, full code DISPOSITION: Telemetry Patient's status and paln discussed with the patient. Case discussed with Dr. Ferrera. Plan discussed with: Patient, Other (RN) Date of Service: Jun 24, 2024 Billing Provider: FELI FERRERA MD Common Visit Codes: [id number] INP/OBS CARE (HIGH) GISELLE WISEMAN RESDIENT Jun 23, 2024 23:29 FELI FERRERA MD Jun 27, 2024 14:57
[2024-06-23] MEDS ORDERED: MORPHINE SULFATE INJ 2 MG/ml SYRG IV PRN (23:30)
[2024-06-23] MEDS ORDERED: NITROGLYCERIN 0.4 MG SL TAB SL PRN (23:30)
[2024-06-24] VITALS (10 sets, daily range): BP systolic 112–153; BP diastolic 84–90; PULSE 76–91; RESP 14–20; TEMP 98.1–98.9; O2SAT 92–100
--- NOTE | 2024-06-24 00:07 | DVH ---
Carotid Duplex Clinical History: cva Comparison: US CAROTID DUPLX W COLOR DOP on DOS: 09/16/22 Technique: Duplex doppler evaluation of the extracranial carotid and vertebral arteries including color doppler and spectral/pulsed waveform analysis was performed. Findings: RIGHT SIDE: The peak systolic velocities are 62 cm/s in the CCA, 61 cm/s in the ICA. The ICA/CCA ratio is 1.0. The external carotid artery is patent with peak systolic velocity of 50 cm/s proximally. There is appropriate antegrade flow in the right vertebral artery. LEFT SIDE: The peak systolic velocities are 51 cm/s in the CCA, 53 cm/s in the ICA. The ICA/CCA ratio is 1.0. The external carotid artery is patent with peak systolic velocity of 45 cm/s proximally. There is appropriate antegrade flow in the left vertebral artery. IMPRESSION: No evidence of hemodynamically significant stenosis in bilateral carotid arteries. Reference: Radiology 2003; 229:[id number] Normal ICA PSV is <125 cm/sec and no plaque or intimal thickening is visible sonographically Additional criteria include ICA/CCA PSV ratio <2.0 and ICA EDV <40 cm/sec <50% ICA stenosis ICA PSV is <125 cm/sec and plaque or intimal thickening is visible sonographically Additional criteria include ICA/CCA PSV ratio <2.0 and ICA EDV <40 cm/sec 50-69% ICA stenosis ICA PSV is 125-230 cm/sec and plaque is visible sonographically Additional criteria include ICA/CCA PSV ratio of 2.0-4.0 and ICA EDV of 40-100 cm/sec 70% ICA stenosis but less than near occlusion ICA PSV is >230 cm/sec at visible plaque at luminal narrowing are seen at pineda-scale at color doppler ultrasound (the higher the doppler parameters lie above the threshold of 230 cm/sec, the greater the likelihood of severe disease) Additional criteria include ICA/CCA PSV ratio >4 and ICA EDV >100 cm/sec
[2024-06-24] MEDS: ATORVASTATIN 20 MG TAB PO SCH (01:50)
[2024-06-24] MEDS: ALBUTEROL SULF 2.5 MG/0.5ML(0.5%) NEB SOLN NEB PRN (02:47)
[2024-06-24] MEDS: IPRATROPIUM BROM 0.5 MG/2.5ML INH SOL NEB PRN (02:47)
[2024-06-24] MEDS: IPRATROPIUM BROM 0.5 MG/2.5ML INH SOL ONE (02:47)
[2024-06-24] MEDS: ALBUTEROL SULF 2.5 MG/0.5ML(0.5%) NEB SOLN ONE (02:47)
[2024-06-24] MEDS: HYDROcodone-ACET 5/325MG TAB PO PRN (03:13)
[2024-06-24] MEDS: PANTOPRAZOLE 40 MG/10 ML VIAL INJ IV ONE (03:29)
[2024-06-24] MEDS: DONEPEZIL HYDROCHLORIDE 5 MG TAB PO ONE (03:30)
[2024-06-24] MEDS: GABAPENTIN 300 MG CAP PO ONE (03:30)
[2024-06-24] MEDS: QUEtiapine FUMARATE 25 MG TAB PO ONE (03:30)
[2024-06-24] MEDS: cloNIDine HCL 0.1 MG TAB PO ONE (03:31)
[2024-06-24 03:41] LABS: Alanine Aminotransferase 31 U/L (7-40); Alkaline Phosphatase 52 U/L (46-116)
[2024-06-24 03:42] LABS: Albumin 3.9 g/dL (3.2-4.8); Anion Gap 8 (5-15); Aspartate Aminotransferase 36 U/L (13-40); BUN/Creatinine Ratio 15.9 (10.0-20.0); Bilirubin, Total 0.8 mg/dL (0.2-1.0); Blood Urea Nitrogen 11 mg/dL (9-23); Calcium 9.1 mg/dL (8.7-10.4); Carbon Dioxide 22 mmol/L (20-31); Glucose 101 mg/dL (74-106); Sodium 139 mmol/L (136-145); Total Protein 6.3 g/dL (5.7-8.2)
[2024-06-24 04:03] LABS: Chloride 109 mmol/L (98-107); Potassium 3.3 mmol/L (3.5-5.1)
[2024-06-24] MEDS: METOPROLOL SUCCINATE XL 50 MG TAB PO ONE (04:41)
[2024-06-24 05:23] LABS: Basophils # (auto) 0 10 ^3/uL (0-0.2); Basophils % (auto) 0.2 % (0.0-2.0); Eosinophils # (auto) 0 10 ^3/uL (0-0.8); Eosinophils % (auto) 0.2 % (0.0-7.0); Mean Corpuscular Hgb Conc. 32.8 g/dL (32.0-36.0); Platelet Count (auto) 371 10^3/uL (140-450); White Blood Cell 5.4 10^3/uL (4.4-10.8)
[2024-06-24 05:25] LABS: Hematocrit 36.4 % (36.0-46.0); Lymphocytes # (auto) 1.6 10 ^3/uL (0.4-5.4); Lymphocytes % (auto) 29.4 % (10.0-50.0); Mean Corpuscular Hemoglobin 33.3 pg (28.0-32.0); Mean Corpuscular Volume 101.3 fL (80.0-100.0); Monocytes # (auto) 0.9 10 ^3/uL (0-1.3); Neutrophils # (auto) 2.9 10 ^3/uL (1.6-8.6); Neutrophils % (auto) 54.2 % (37.0-80.0); Nucleated Red Blood Cells % 0.2 %; Red Blood Cells 3.59 10^6/uL (4.0-5.20); Red Cell Distribution Width 13.8 % (11.8-14.3)
--- NOTE | 2024-06-24 09:32 | DVHPN2 ---
Progress Note - Dictate Date Seen: Jun 24, 2024 Medical Necessity Reason Pt with a Central, PICC or Fol: No Subjective PT WELL KNOWN TO ME HX OF HTN EF >55% LVH DIASTOLIC DYSFUNCTION HX OF PE HX OF CVA COPD TOBACCO USE NOW FELL ASLEEP IN A CHAIR WAKE UP WITH COMPRESSION OF NEUROPATHY OF THE RIGHT HAND SX NOT CONSISTENT WITH CVA vital signs Vital Sign Date Time Temp Pulse Resp B/P (MAP) Pulse Ox O2 Delivery O2 Flow Rate FiO2 06/24/24 08:00 89 06/24/24 08:00 98.1 12 112/79 (90) 100 98.1 06/24/24 07:30 Nasal Cannula* 2 28 medications Current Medications Medications Dose Ordered Sig/Evette Route Start Time Stop Time Status Last Admin Dose Admin Lorazepam 1 mg ONCE PRN IV 06/23/24 22:15 Apixaban 5 mg BID PO 06/24/24 10:00 Atorvastatin Calcium 20 mg DAILY PO 06/23/24 22:00 06/24/24 01:50 20 MG Acetaminophen/ Hydrocodone Bitart 1 tab Q6HPRN PRN PO 06/24/24 02:00 06/24/24 03:13 1 TAB Clonidine HCl 0.2 mg DAILY PO 06/25/24 10:00 Gabapentin 300 mg BID PO 06/24/24 22:00 Ipratropium [place] 0.5 mg Q6HPRN PRN NEB 06/24/24 02:15 06/24/24 02:47 0.5 MG Albuterol 2.5 mg Q6HPRN PRN NEB 06/24/24 02:15 06/24/24 02:47 2.5 MG Pantoprazole Sodium 40 mg DAILY IV 06/25/24 10:00 Metoprolol Succinate 25 mg DAILY PO 06/25/24 10:00 Donepezil HCl 10 mg HS PO 06/24/24 22:00 Quetiapine Fumarate 50 mg DAILY PO 06/25/24 10:00 laboratory and microbiology Laboratory Tests 06/24/24 02:30 Test 06/24/24 02:30 Range/Units Serum Glucose 101 74-106 mg/dL Problem List HX OF HTN EF >55% LVH DIASTOLIC DYSFUNCTION HX OF PE HX OF CVA COPD TOBACCO USE NOW FELL ASLEEP IN A CHAIR WAKE UP WITH COMPRESSION OF NEUROPATHY OF THE RIGHT HAND SX NOT CONSISTENT WITH CVA Assessment/Plan SX TREATMENT MAY DC HOME WITH PHYSICAL THERAPY REVIEWED LAB: WBC, HCT AND RDW ARE NORMAL Plan discussed with: Patient LOBO RECIO MD Jun 24, 2024 09:32
[2024-06-24] MEDS: APIXABAN 5 MG TAB PO SCH (10:31)
--- NOTE | 2024-06-24 15:03 | DVH ---
CLINICAL INDICATION: Pain, r/o fx TECHNIQUE: 2 radiographic views of the right wrist were obtained. Comparison: None FINDINGS/IMPRESSION: There is no evidence of acute fracture or dislocation. The visualized joint space is well maintained. The alignment is anatomical. There is no radiopaque foreign body.
--- NOTE | 2024-06-24 17:57 | DVHDSRES ---
Discharge Summary Date of Admission Resident Creating Document: GISELLE WISEMAN RESDIENT Jun 23, 2024 at 23:28 Date of Discharge: Jun 24, 2024 Admitting Diagnosis Left-sided weakness, likely due to right radial motor neuropathy Labs/Diagnostic Data: Laboratory Results Test 06/24/24 02:30 06/23/24 14:50 White Blood Count 5.4 10^3/uL (4.4-10.8) Red Blood Count 3.59 10^6/uL (4.0-5.20) Hemoglobin 12.0 g/dL (12.2-16.2) Hematocrit 36.4 % (36.0-46.0) Mean Corpuscular Volume 101.3 fL (80.0-100.0) Mean Corpuscular Hemoglobin 33.3 pg (28.0-32.0) Mean Corpuscular Hemoglobin Concent 32.8 g/dL (32.0-36.0) Red Cell Distribution Width 13.8 % (11.8-14.3) Platelet Count 371 10^3/uL (140-450) Mean Platelet Volume 6.5 fL (6.9-10.8) Neutrophils (%) (Auto) 54.2 % (37.0-80.0) Lymphocytes (%) (Auto) 29.4 % (10.0-50.0) Monocytes (%) (Auto) 16.0 % (0.0-12.0) Eosinophils (%) (Auto) 0.2 % (0.0-7.0) Basophils (%) (Auto) 0.2 % (0.0-2.0) Neutrophils # (Auto) 2.9 10 ^3/uL (1.6-8.6) Lymphocytes # (Auto) 1.6 10 ^3/uL (0.4-5.4) Monocytes # (Auto) 0.9 10 ^3/uL (0-1.3) Eosinophils # (Auto) 0 10 ^3/uL (0-0.8) Basophils # (Auto) 0 10 ^3/uL (0-0.2) Nucleated Red Blood Cells 0.2 % Sodium Level 139 mmol/L (136-145) Potassium Level 3.3 mmol/L (3.5-5.1) Chloride Level 109 mmol/L (98-107) Carbon Dioxide Level 22 mmol/L (20-31) Anion Gap 8 (5-15) Blood Urea Nitrogen 11 mg/dL (9-23) Creatinine 0.69 mg/dL (0.550-1.02) Glomerular Filtration Rate Calc 96 mL/min (>90) BUN/Creatinine Ratio 15.9 (10.0-20.0) Serum Glucose 101 mg/dL (74-106) Calcium Level 9.1 mg/dL (8.7-10.4) Magnesium Level 2.0 mg/dL (1.6-2.6) Total Bilirubin 0.8 mg/dL (0.2-1.0) Aspartate Amino Transferase (AST) 36 U/L (13-40) Alanine Aminotransferase (ALT) 31 U/L (7-40) Alkaline Phosphatase 52 U/L (46-116) Total Protein 6.3 g/dL (5.7-8.2) Albumin 3.9 g/dL (3.2-4.8) Triglycerides Level 120 mg/dL (< 150) Cholesterol Level 111 mg/dL (< 200) LDL Cholesterol 52 mg/dL (< 100) HDL Cholesterol 37 mg/dL (40-59) Other Laboratory Tests 06/24/24 02:30 Brief Hx & Hospital Course: A 64-year-old female with a past medical history of recurrent CVA, CHF, hypertension, pulmonary emboli, COPD/asthma, and dementia presented with left hand weakness and numbness. She reported decreased oral intake and denied fever, cough, or other systemic symptoms. On admission, her symptoms were thought to be due to compression-related neuropathy, possibly from prolonged positioning in a chair, and were deemed inconsistent with an acute stroke. A head CT scan showed no acute abnormalities. The patient was managed conservatively with supportive care, including continuation of home medications (Gabapentin, Entresto, Xarelto, and Atorvastatin). She remained hemodynamically stable a. She showed improvement in symptoms during her stay and was deemed safe for discharge with instructions for outpatient physical therapy and follow-up care. General Appearance: Alert, Oriented X3, Cooperative, No acute distress HEENT: Atraumatic, PERRLA, EOMI, Mucous membrane moist/pink Respiratory: Clear to auscultation, Normal air movement Cardiovascular: Regular rate, Normal S1, Normal S2, No murmurs, no chest wall tenderness Abdominal: Normal bowel sounds, Soft, No tenderness, No hepatospenomegaly, No masses Extremities: No clubbing, No cyanosis, No edema, Normal pulses, No tenderness/swelling Skin: No rashes, No breakdown, No significant lesion Neuro: Right upper limb power 2/5, hypotonic with normal sensation. Psych/Mental Status: Mental status NL, Mood NL Case discussed with Dr Parham time spent care 23 min Consults/Reason for consult neurology due to right radial mononeuropathy Operations or Procedures EXAM: CT HEAD WITHOUT CONTRAST HISTORY: right hand weakness COMPARISON: CT HEAD WITHOUT CONTRAST on DOS: 06/11/24, CT HEAD WITHOUT CONTRAST on DOS: 12/03/23 TECHNIQUE: Axial images of the head were obtained and reformatted in coronal and sagittal planes. All CT scans at this medical facility are performed using dose modulation techniques as appropriate to a performed exam including the following: Automated exposure control was utilized; adjustment of the MA and/or KV according to patient size; and use of iterative reconstruction technique. CT Dose: CTDI volume is 58 mGy. Dose-length product is 930 mGy*cm FINDINGS: There is no evidence of acute intracranial hemorrhage, mass, mass effect midline shift. There is no hydrocephalus or extra-axial fluid collection. There are hypodense changes in the supratentorial white matter, particularly in the bilateral parietal lobe white matter. These likely represent chronic small- vessel ischemic changes. There is a small chronic infarct in the right parietal lobe. maintained. The visualized paranasal sinuses and mastoid air cells are clear. The calvarium is intact. IMPRESSION: 1. No acute intracranial process. Carotid Duplex Clinical History: cva Comparison: US CAROTID DUPLX W COLOR DOP on DOS: 09/16/22 Technique: Duplex doppler evaluation of the extracranial carotid and vertebral arteries including color doppler and spectral/pulsed waveform analysis was performed. Findings: RIGHT SIDE: The peak systolic velocities are 62 cm/s in the CCA, 61 cm/s in the ICA. The ICA/CCA ratio is 1.0. The external carotid artery is patent with peak systolic velocity of 50 cm/s proximally. There is appropriate antegrade flow in the right vertebral artery. LEFT SIDE: The peak systolic velocities are 51 cm/s in the CCA, 53 cm/s in the ICA. The ICA/CCA ratio is 1.0. The external carotid artery is patent with peak systolic velocity of 45 cm/s proximally. There is appropriate antegrade flow in the left vertebral artery. IMPRESSION: No evidence of hemodynamically significant stenosis in bilateral carotid arteries. Reference: Radiology 2003; 229:[id number] Normal ICA PSV is <125 cm/sec and no plaque or intimal thickening is visible sonographically Additional criteria include ICA/CCA PSV ratio <2.0 and ICA EDV <40 cm/sec <50% ICA stenosis ICA PSV is <125 cm/sec and plaque or intimal thickening is visible sonographically Additional criteria include ICA/CCA PSV ratio <2.0 and ICA EDV <40 cm/sec 50-69% ICA stenosis ICA PSV is 125-230 cm/sec and plaque is visible sonographically Additional criteria include ICA/CCA PSV ratio of 2.0-4.0 and ICA EDV of 40-100 cm/sec 70% ICA stenosis but less than near occlusion ICA PSV is >230 cm/sec at visible plaque at luminal narrowing are seen at pineda- scale at color doppler ultrasound (the higher the doppler parameters lie above the threshold of 230 cm/sec, the greater the likelihood of severe disease) Additional criteria include ICA/CCA PSV ratio >4 and ICA EDV >100 cm/sec CLINICAL INDICATION: Pain, r/o fx TECHNIQUE: 2 radiographic views of the right wrist were obtained. Comparison: None FINDINGS/IMPRESSION: There is no evidence of acute fracture or dislocation. The visualized joint space is well maintained. The alignment is anatomical. There is no radiopaque foreign body. Condition at Discharge: Stable Final Diagnosis/Problems List LEFT ARM NEUROPATHY DUE TO COMPRESSION ACUTE STROKE RULED OUT History of CHF History of hypertension History of pulmonary emboli History of asthma/COPD Discharge Disposition: Home Discharge Instruct/Medications Diet: Consistent carbohydrate, Cardiac 2g Na,low cholest Activity: Light activity Follow Up/Referral: f/u with Dr Baird Medications: see prescription Discharge Statement: "Patient was advised to return to the ER or call 911 if any headaches, dizziness, shortness of breath, chest pain, abdominal pain, bleeding, fevers, or worsening of medical condition. Patient was counseled about treatment plan, medications, possible side effects, patientverbalized understanding. All questions were answered to the best of my ability. This discharge took greater then 30 minutes in planning, reviewing documentation, counseling the patient, and discussing with other team members." ASSESSMENT ASSESSMENT Assessment RIGHT ARM NEUROPATHY DUE TO COMPRESSIO Date of Service: Jun 24, 2024 Billing Provider: FELI PARHAM MD Common Visit Codes: 75295-HNH/OBS DISCH DAY >30min NANCI KATZ RESIDENT Jun 24, 2024 17:57 FELI PARHAM MD Jun 27, 2024 14:58
[2024-06-24] MEDS ORDERED: DONEPEZIL HYDROCHLORIDE 5 MG TAB PO SCH (22:00)
[2024-06-24] MEDS ORDERED: GABAPENTIN 300 MG CAP PO SCH (22:00)
--- NOTE | 2024-06-25 00:32 | ECG ---
[facility] Test Date: 2024-06-24 Test Time: 00:06:58 Pat Name: YVETTE KONG Department: ER Room: [facility] A Gender: F Cloth Tester Quality: JANES : 1960 Requested By: COLEEN CELESTE Order Number: [id number] Reading MD: David Mann Measurements Intervals [place] Rate: 88 P: 24 WV: 185 QRS: -34 QRSD: 90 T: -18 QT: 375 QTc: 454 Interpretive Statements Sinus rhythm Left axis deviation Probable anterior infarct, age indeterminate Electronically Signed On 06-25-2024 12:09:51 PST by David Mann Please click the below link to view image of tracing.
[2024-06-25] MEDS ORDERED: cloNIDine HCL 0.1 MG TAB PO SCH (10:00)
[2024-06-25] MEDS ORDERED: METOPROLOL SUCCINATE XL 50 MG TAB PO SCH (10:00)
[2024-06-25] MEDS ORDERED: QUEtiapine FUMARATE 25 MG TAB PO SCH (10:00)
[2024-06-25] MEDS ORDERED: PANTOPRAZOLE 40 MG/10 ML VIAL INJ IV SCH (10:00)
== END 2024-06-24 16:25 | disposition home or self-care (01) | DRG 74 ==
LOC: ER 13:42 → OVERFLOW 23:28 → WEST WING 06-24 08:59
PROVIDERS: ADMIT Student in an Organized Health Care Education/Training Program; ATTEND Student in an Organized Health Care Education/Training Program
DX: G56.31 Lesion of radial nerve, right upper limb (principal); G62.9 Polyneuropathy, unspecified; J44.9 Chronic obstructive pulmonary disease, unspecified; I50.9 Heart failure, unspecified; F17.210 Nicotine dependence, cigarettes, uncomplicated; I11.0 Hypertensive heart disease with heart failure; F32.A Depression, unspecified; Z79.01 Long term (current) use of anticoagulants; Z79.899 Other long term (current) drug therapy; Z86.711 Personal history of pulmonary embolism; Z86.73 Personal history of transient ischemic attack (TIA), and cerebral infarction without residual deficits; Z88.0 Allergy status to penicillin
CPT/HCPCS: 36415; 70450; 73100; 80048; 80053; 80061; 83735; 85025; 93005; 93886; 94640; G0378; J2470

== ENCOUNTER → 2024-08-10 | Outpatient (CLI) | payer MEDICARE, MEDICAID ==
[~2024-08-10] MED LIST changes: +READI-CAT 2 (BARIUM SULF)(VANILLA SMOOTHIE) 450ML ONE
--- NOTE | 2024-08-10 15:09 | DVH ---
EXAM: CT CERVICAL WITHOUT CONTRAST HISTORY: NECK PAIN COMPARISON: None CTDIvol 14.9 mGy, DLP 288.7 mGy*cm. TECHNIQUE: Multiple axial CT images of the spine were obtained using bone algorithm. Axial and coron al reformatting was done. Bone and soft tissue windows were reviewed. FINDINGS: No CT evidence of definite acute fracture, spinal dislocation, or significant appearing acute subluxa tion is seen. Mild centrilobular emphysema. Mild degenerative disc space narrowing at C5-C6 and C6-C7 with mild disc uncinate hypertrophy. IMPRESSION: No definite CT evidence of acute fracture or dislocation of the bony cervical spine.
--- NOTE | 2024-08-10 17:32 | DVH ---
Exam: CT CT AB PEL WITH ORAL CON ONLY History: ABD PAIN Comparison Study: [facility] on DOS: 06/13/22, [facility] on DOS: 09/19/21 Technique: Multidetector spiral CT of the abdomen and pelvis was performed from lung bases to pubic symphysis. Imaging was performed without IV contrast. Axial, coronal and sagittal multiplanar reform ats were obtained from the axial data set by the technologist. Radiation dose : Abdomen/Pelvis: CTDIvol 6.97 mGy, DLP 330.73 mGy*cm. Findings: Evaluation of solid organs is limited due to lack of intravenous contrast use. Lung Bases: No acute or significant lung base finding. Normal heart size. No pleural or pericardial effusion. Liver: The liver is normal in size. No focal lesions. Gallbladder and biliary Tree: Unremarkable Spleen: Unremarkable Pancreas: The pancreas is grossly normal in appearance. Adrenal Glands: Right adrenal nodule measuring up to 13 mm. Kidneys: Kidneys are grossly normal without calculi or hydronephrosis. Bladder: Large amount of air in the bladder. Bowel: The stomach is grossly normal in appearance. Small bowel and colon are normal in caliber and d istribution. Normal appendix is visualized in the right lower quadrant without findings of appendicit is. Ascites: Absent Lymphadenopathy: No mesenteric, retroperitoneal or periportal lymphadenopathy. Abdominal wall and Mesentery: Unremarkable. Vasculature: The visualized abdominal aorta is normal in size and caliber. Evaluation of abdominal a nd pelvic vessels is limited due to lack of intravenous contrast. Pelvic Organs: Unremarkable Musculoskeletal: No aggressive focal bony lesions, acute fractures or dislocation. IMPRESSION: 1. No definite acute abdominal or pelvic findings. Large amount of air in the bladder, consider emphy sematous cystitis or fistula with bowel or vagina. Alternatively could be related to recent instrumen tation. Clinical correlation and continued follow-up is recommended. Right adrenal nodule. Radiation optimization: All CT scans at this facility use at least one of these dose optimization carmen hniques: Automated exposure control mA and/or kV adjustment per patient size (includes targeted exams where dose is matched to clinical indication) or iterative reconstruction. HS:Y
== END | disposition home or self-care (01) ==
LOC: Rad HDHVI 10:08
PROVIDERS: ATTEND Internal Medicine Cardiovascular Disease
DX: M47.812 Spondylosis without myelopathy or radiculopathy, cervical region (principal); M48.02 Spinal stenosis, cervical region; J43.2 Centrilobular emphysema; N30.80 Other cystitis without hematuria; E27.8 Other specified disorders of adrenal gland; M54.2 Cervicalgia; R10.9 Unspecified abdominal pain
CPT/HCPCS: 72125; 74176

== ENCOUNTER → 2024-08-11 | Outpatient (CLI) | payer MEDICARE, MEDICAID ==
[~2024-08-11] MED LIST changes: -READI-CAT 2 (BARIUM SULF)(VANILLA SMOOTHIE) 450ML ONE
[2024-08-11 12:22] LABS: Basophils # (auto) 0 10 ^3/uL (0-0.2); Basophils % (auto) 0.8 % (0.0-2.0); Eosinophils # (auto) 0 10 ^3/uL (0-0.8); Hematocrit 39.2 % (36.0-46.0); Hemoglobin 12.8 g/dL (12.2-16.2); Lymphocytes # (auto) 1.5 10 ^3/uL (0.4-5.4); Lymphocytes % (auto) 33.3 % (10.0-50.0); Mean Corpuscular Hemoglobin 33.1 pg (28.0-32.0); Mean Corpuscular Hgb Conc. 32.6 g/dL (32.0-36.0); Mean Corpuscular Volume 101.5 fL (80.0-100.0); Monocytes # (auto) 0.6 10 ^3/uL (0-1.3); Monocytes % (auto) 12.6 % (0.0-12.0); Neutrophils # (auto) 2.3 10 ^3/uL (1.6-8.6); Neutrophils % (auto) 52.3 % (37.0-80.0); Nucleated Red Blood Cells % 0.2 %; Platelet Count (auto) 325 10^3/uL (140-450); Red Blood Cells 3.86 10^6/uL (4.0-5.20); Red Cell Distribution Width 14.2 % (11.8-14.3); White Blood Cell 4.4 10^3/uL (4.4-10.8)
[2024-08-11 12:31] LABS: Alanine Aminotransferase 13 U/L (7-40); Albumin 3.9 g/dL (3.2-4.8); Anion Gap 7 (5-15); Aspartate Aminotransferase 16 U/L (13-40); BUN/Creatinine Ratio 13.3 (10.0-20.0); Bilirubin, Direct 0.3 mg/dL (<0.3); Bilirubin, Total 0.7 mg/dL (0.2-1.0); Blood Urea Nitrogen 10 mg/dL (9-23); Calcium 9.2 mg/dL (8.7-10.4); Carbon Dioxide 26 mmol/L (20-31); Cholesterol 151 mg/dL (< 200); Glucose 88 mg/dL (74-106); HDL Cholesterol 52 mg/dL (40-59); LDL Cholesterol 80 mg/dL (< 100); Potassium 3.6 mmol/L (3.5-5.1); Sodium 145 mmol/L (136-145); Total Protein 6.4 g/dL (5.7-8.2); Triglycerides 78 mg/dL (< 150)
[2024-08-11 12:33] LABS: Alkaline Phosphatase 46 U/L (46-116); Chloride 112 mmol/L (98-107)
[2024-08-11 16:48] LABS: Urine Blood Negative /uL (Negative); Urine Clarity Turbid (Clear); Urine Color Yellow (Yellow); Urine Protein, UAD TRACE (Negative); Urine Specific Gravity 1.033 (1.001-1.035); Urine Urobilinogen 4 mg/dL (Negative)
== END | disposition home or self-care (01) ==
LOC: LAB 11:38
PROVIDERS: ATTEND Internal Medicine Cardiovascular Disease
DX: I10 Essential (primary) hypertension (principal); E11.9 Type 2 diabetes mellitus without complications; E55.9 Vitamin D deficiency, unspecified; D64.9 Anemia, unspecified; R00.2 Palpitations
CPT/HCPCS: 36415; 80048; 80061; 80076; 81003; 83036; 84443; 85025

== ENCOUNTER → 2024-08-12 | Outpatient (CLI) | payer MEDICARE, MEDICAID ==
--- NOTE | 2024-08-16 16:53 | DVHSR ---
APPROVED REPORT EXAM: Two-dimensional and M-mode echocardiogram with Doppler and color Doppler. DIMENSIONS LVDd4.0 (3.8-5.7cm)LA (2D)3.1 (1.9-4.0cm)Aortic Root3.1 (2.0-3.7cm) LVDs2.6 (2.5-4.0cm)LA (MM) (1.9-4.0cm)Aortic Cusp Exc2.1 (1.5-2.0cm) EF (%) 64.9 (55-70%)Rt. Atrium3.3 (1.9-4.0cm)Asc. Aorta cm IVSd1.7 (0.7-1.1cm)RV (D)2.5 (1.8-2.4cm) PWd1.2 (0.7-1.1cm) Mitral Valve MitralMitral Stenosis E wave0.40m/sMV Mean GR.mmHg A wave0.79m/sMV Peak GR.mmHg E/A ratio0.52D MVAcm2 DECEL [id number] 1/2 Timems Aortic Valve Aortic ValveAortic Stenosis V11.11m/Leander Mean GR.6mmHg V21.55m/[place] Peak GR.10mmHg Pulmonic Valve V20.83m/s Tricuspid Valve TR Velocity2.43m/s [id number] LEFT VENTRICLE The Ejection Fraction is >55%. RIGHT VENTRICLE The right ventricle is normal size. ATRIA The left atrial size is normal. The right atrium size is normal. MITRAL VALVE The mitral valve is normal in structure and function. There is no mitral valve regurgitation noted. PULMONIC VALVE The pulmonic valve is not well visualized. TRICUSPID VALVE The tricuspid valve is grossly normal. There is trace tricuspid regurgitation. AORTIC VALVE The aortic valve opens well. No aortic regurgitation is present. GREAT VESSELS The aortic root is normal size. PERICARDIAL EFFUSION There is no pericardial effusion. Conclusion EF >55% HYPERDYNAMIC CONTRACTILITY CONC LVH
== END | disposition home or self-care (01) ==
LOC: Rad HDHVI 13:07
PROVIDERS: ATTEND Internal Medicine Cardiovascular Disease
DX: I10 Essential (primary) hypertension (principal); E78.5 Hyperlipidemia, unspecified
CPT/HCPCS: 93306

== ENCOUNTER 2024-08-15 18:10 | Emergency (ER) | payer MEDICARE, MEDICAID ==
[~2024-08-15] VITALS: Ht 170.2 cm; Wt 78.0 kg
--- NOTE | 2024-08-15 18:57 | DVH ---
EXAM: CT CERVICAL WITHOUT CONTRAST INDICATION: S/P FALL/PAIN EXAM DATE: 08/15/2024 06:28 PM COMPARISON: CT CERVICAL WITHOUT CONTRAST on DOS: 08/10/24 TECHNIQUE: Multiple axial CT images of the cervical spine were obtained using bone algorithm. Axial a nd coronal reformatting was done. Bone and soft tissue windows were reviewed. Radiation Dose Information: CT Dose: CTDI volume is 21.16 mGy. Dose-length product is 514.45 mGy*cm FINDINGS: The cervical alignment is intact. No acute cervical spine fracture is identified. The vertebral b thr oughout the cervical spine dy heights are intact. No suspicious osseous lesions are identified. Mild degenerative changes throughout the cervical spine. There is no prevertebral soft tissue swelling. IMPRESSION: 1. No evidence of acute cervical spine fracture or traumatic malalignment. 2. All CT scans at this medical facility are performed using dose modulation techniques as appropriat e to a performed exam including the following: Automated exposure control was utilized; adjustment of the MA and/or KV according to patient size; and use of iterative reconstruction technique.
[2024-08-15] MEDS ORDERED: HYDROcodone-ACET 5/325MG TAB PO ONE (21:45)
--- NOTE | 2024-08-15 21:47 | ED.PDOC ---
Back pain HPI HPI Comments THIS IS A 64-YEAR-OLD FEMALE PRESENTS TO THE ED CHIEF COMPLAINT NECK PAIN X1 WEEK. PATIENT STATES SHE HAD A SLIP AND FALL FOR A MONTH AGO HAD IMAGING AND X- RAYS WERE SEEN AT THE PRIMARY CARE SHE NOTES PAIN CONTINUES STATES 8/10 ON PAIN SCALE NOTES SOME STIFFNESS DENIES NUMBNESS OR WEAKNESS OR ANY OTHER KNOWN INJURY. Chief Complaint: Neck Pain Time Seen by MD: 18:24 Primary Care Provider: NONE Reviewed Notes: Nurses Notes, Medications, Allergies Allergies: Coded Allergies: Penicillins (Verified Allergy, Unknown, 01/29/22) Home Meds Reported Medications Clonidine Hydrochloride (Clonidine Hcl) 0.2 Mg Tab, 1 TAB PO QPM for HTN 09/30/22 Prednisone (Prednisone) 20 Mg Tab, 20 MG PO DAILY for COPD, MG 09/30/22 Atorvastatin Calcium (ATORVASTATIN CALCIUM) 20 Mg Tab, 1 TAB PO DAILY for CHOLESTEROL 09/30/22 Rivaroxaban (XARELTO) 20 Mg Tab, 1 TAB PO DAILY for BLOOD THINNER 09/30/22 Vbztotsmynt-Cewbjzltvqgs-Ijzwg (Trelegy Ellipta 100-62.5-25 Mcg/INH) 1 Aer Aer, 1 AER IN DAILY for COPD, AER 09/30/22 Sacubitril-Valsartan (Entresto 97-103 mg) 1 Tab Tab, 1 TAB PO BID for HF, TAB 09/30/22 Quetiapine Fumerate (QUETIAPINE FUMARATE) 50 Mg Tab, 50 MG PO DAILY for SLEEP, TAB 01/29/22 Potassium Chloride (Potassium Chloride ER) 20 Meq Tab, 20 MEQ PO DAILY for SUPPLEMENT, TAB 01/29/22 Naloxegol Oxalate (Movantik) 25 Mg Tab, 25 MG PO DAILY for CONSTPATION, TAB 01/29/22 Metoprolol Succinate (Metoprolol Succinate Er) 25 Mg Tab, 25 MG PO DAILY for HTN 01/29/22 Albuterol Sulfate (Ventolin) 2.5 Mg/0.5 Ml Nb, 1 VIAL NEB DAILY for COPD 01/29/22 Furosemide (Furosemide) 20 Mg Tab, 40 MG PO DAILY for edema 09/26/20 Information Source: Patient Mode of Arrival: Wheelchair Past Medical History PAST MEDICAL HISTORY: CHF, CVA, HTN, PE Surgical History: Denies all surgeries DIRECTOR SCRIPT History: No Pertinent DIRECTOR SCRIPT History Family History Family History: Reviewed,noncontributory to illness Social History Smoker: Cigarettes Alcohol: Occasionally Drugs: Denies Drug Use Lives In: Home Constitutional: denies: chills, diaphoresis, fatigue, fever, malaise, sweats, weakness, others EENTM: denies: blurred vision, double vision, ear bleeding, ear discharge, ear drainage, ear pain, ear ringing, eye pain, eye redness, hearing loss, mouth pa in, mouth swelling, nasal discharge, nose bleeding, nose congestion, nose pain, photophobia, tearing, throat pain, throat swelling, voice changes, others Respiratory: denies: cough, hemoptysis, orthopnea, SOB at rest, shortness of breath, SOB with excertion, stridor, wheezing, others Cardiovascular: denies: chest pain, dizzy spells, diaphoresis, Dyspnea on exertion, edema, irregular heart beat, left arm pain, lightheadedness, palpitations, PND, syncope, others Gastrointestinal: denies: abdomen distended, abdominal pain, blood streaked bowels, constipated, diarrhea, dysphagia, difficulty swallowing, hematemesis, melena, nausea, poor appetite, poor fluid intake, rectal bleeding, rectal pain, vomiting, others Genitourinary: denies: abnormal vagina bleeding, burning, dyspareunia, dysuria, flank pain, frequency, hematuria, incontinence, pain, , vagina discharge, urgency, others Neurological: denies: dizziness, fainting, headache, left sided numbness, left sided weakness, numbness, paresthesia, pre-existing deficit, right sided numbness, right sided weakness, seizure, speech problems, tingling, tremors, weakness, others Musculoskeletal: reports: neck pain; denies: back pain, gout, joint pain, joint swelling, muscle pain, muscle stiffness, others Integumetry: denies: bruises, change in color, change in hair/nails, dryness, laceration, lesions, lumps, rash, wounds, others Allergic/Immunocompromised: denies: Difficulty Healing, Frequent Infections, Hives, Itching, others Hematologic/Lymphatic: denies: anemia, blood clots, easy bleeding, easy bruisi ng, swollen glands, others Endocrine: denies: excessive hunger, excessive sweating, excessive thirst, exce ssive urination, flushing, intolerance to cold, intolerance to heat, unexplained weight gain, unexplained weight loss, others Psychiatric: denies: anxiety, bipolar disorder, depression, hopeless, panic disorder, schizophrenia, sleepless, suicidal, others Physical Exam General Appearance: No Apparent Distress, Normal HEENT: Pharynx Normal Neck: Limited Range of Motion, Tender Lateral Respiratory: Lungs Clear, No Respiratory Distress, Normal Breath Sounds Cardiovascular: No Edema, No JVD, No Murmur, No Gallop, Normal Peripheral Pulses, Regular Rate/Rhythm Breast Exam: Deferred Gastrointestinal: No Organomegaly, Non Tender, No Pulsatile Mass, Normal Bowel Sounds, Soft Genitalia: Deferred Pelvic: Deferred Rectal: Deferred Extremities: Normal capillary refill, Normal inspection, Normal range of motion, Non-tender, No pedal edema Musculoskeletal : Apperance: Normal Neurologic: Alert, x ray service engineer II-XII nml as Tested, No Motor Deficits, Normal Affect, Normal Mood, No Sensory Deficits Cerebellar Function: Normal Reflexes: Normal Skin: Dry, Normal Color, Warm Lymphatic: No Adenopathy Was a procedure done? Was a procedure done?: No Back Pain Differential Dx Differential Diagnosis: Fracture, Musculoskeletal Pain, Strain X-Ray, Labs, Meds, VS Vital Signs Date Time Temp Pulse Resp B/P (MAP) Pulse Ox O2 Delivery O2 Flow Rate FiO2 08/15/24 18:18 97.0 96 16 96/62 (73) 96 97.0 X-Ray, Labs, Meds, VS Comment CT OF CERVICAL SPINE NEGATIVE FOR ACUTE FINDINGS, SUBLUXATION, OR FRACTURES. GIVEN TORADOL 60 MG IM AND DEXAMETHASONE 10 MG. REFUSED NORCO. ADVISED PATIENT TO REST, ALTERNATE BETWEEN HEAT AND ICE. ADVISED HIM TO FOLLOW UP WITH HER PCP PATIENT STATES SHE HAS NOT APPOINTMENT TOMORROW MORNING. ER RETURN PRECAUTIONS GIVEN PATIENT INDICATES UNDERSTANDING AND AGREES WITH DISCHARGE PLAN OF CARE. Time of 1ST Reevaluation: 22:05 Reevaluation 1ST: Improved Patient Education/Counseling: Diagnosis, Treatment, Prognosis, Need For Follow Up Family Education/Counseling: Diagnosis, Treatment, Prognosis, Need For Follow Up Departure 1 Departure Time of Disposition: 21:47 Impression: Primary Impression: Strain of muscle, fascia and tendon at neck level, initial encounter Disposition: HOME / SELF CARE / HOMELESS Condition: Stable Discharged With: Friend Critical Care Note Critical Care Time?: No Stability Stability form required: DARCI Araya Aug 15, 2024 21:47
[2024-08-15 21:50] VITALS: BP 95/62; PULSE 88; RESP 19; TEMP 97.8; O2SAT 93
[2024-08-15] MEDS: DexAMETHasone SOD PHOS 10MG/1ML VIAL INJ IM ONE (22:06)
[2024-08-15] MEDS: KETOROLAC TROMETH 60MG/2ML VIAL IM ONE (22:06)
== END 2024-08-15 22:22 | disposition home or self-care (01) ==
LOC: ER 18:10
DX: S16.1XXA Strain of muscle, fascia and tendon at neck level, initial encounter (principal); I11.0 Hypertensive heart disease with heart failure; I50.9 Heart failure, unspecified; F17.210 Nicotine dependence, cigarettes, uncomplicated; Z88.0 Allergy status to penicillin; Z86.73 Personal history of transient ischemic attack (TIA), and cerebral infarction without residual deficits; Z79.899 Other long term (current) drug therapy; Z79.52 Long term (current) use of systemic steroids; Z79.01 Long term (current) use of anticoagulants; W01.0XXA Fall on same level from slipping, tripping and stumbling without subsequent striking against object, initial encounter; Y93.89 Activity, other specified; Y92.89 Other specified places as the place of occurrence of the external cause; Y99.8 Other external cause status
CPT/HCPCS: 72125; 96372; 99285; J1100; J1885

== ENCOUNTER → 2024-08-16 | Outpatient (CLI) | payer MEDICARE, MEDICAID | END | disposition home or self-care (01) | LOC: Rad HDHVI 09:07 | PROVIDERS: ATTEND Internal Medicine Cardiovascular Disease | DX: I73.9 Peripheral vascular disease, unspecified (principal) | CPT/HCPCS: 93925 ==

== ENCOUNTER → 2024-08-17 | Outpatient (CLI) | payer MEDICARE, MEDICAID ==
[~2024-08-17] VITALS: Ht 172.7 cm; Wt 77.1 kg
--- NOTE | 2024-08-25 12:53 | DVHSR ---
APPROVED REPORT Exam: Nuclear Stress Test Indication: Chest pain Ht: 5 ft 8 in Wt: 170 lbs BSA: 1.91 m2 HR: 83 bpm BP: 128/97 mmHg BMI: 25.84 Rhythm: NSR Medical History Medical History: [place], HTN, Hypercholesterolemia, Smoking, SOB, CHF, PAH Medications: Metoprolol, Clonidine, Entresto, Potassium, Xarelto, Atorvastatin, Moujaro, Verquvo, Bum ex Allergies: PCN Cardiac Risk Factors: Family Hx of CAD Stress Test Details Stress Test: Exercise stress testing was performed using a modified Ramiro protocol. HR Resting HR: 83 bpmMax Heart Rate (APMHR): 155.017518 bpm Max HR Achieved: 150 bpmTarget HR (85% APMHR): 131.791613 bpm % of APMHR: 96.77 Recovery HR: 89 bpm HR response to stress: Accelerated BP Resting BP: 128/97 mmHg Max BP: 208/122 mmHg Recovery BP: 163/105 mmHg BP response to stress: Exaggerated response. ECG Resting ECG: NSR Stress ECG: Sinus Tachycardia Arrhythmia: PACs, PVCs, Bigeminy PVCs Recovery ECG: Sinus Rhythm Recovery Arrhythmia: PVCs Clinical Reason for Termination: Dyspnea Stress Symptoms: Dyspnea Exercise duration: 3 min sec Exercise capacity: 3.4 METs Dyspnea improved during recovery. Stress ECG Conclusion NON ISCHEMIC ECG RESPONSE NON ISCHEMIC PERFUSION SCAN EF >55% LESS THAN 10% LIKELIHOOD FOR STRESS INDUCED ISCHEMIA NM EXAM: Myocardial Perfusion REST/STRESS Imaging Protocol: Rest Tc-99m/Stress Tc-99m 1 day Resting Data Rest SPECT myocardial perfusion imaging was performed in supine position 30 minutes following the int ravenous injection of 10.98 mCi of Tc-99m Sestamibi. Time of rest injection: 1352 Date: 08/17/2024 Time of rest imagin Date: 08/17/2024 Administration Route: IV Administration Site: Right Arm Exercise Stress At peak stress, the patient was injected intravenously with 33 mCi of Tc-99m Sestamibi. Time of stress injection: 1455 Date: 08/17/2024 Time of stress imagin Date: 08/17/2024 Administration Route: IV Administration Site: Right Arm Heart Rate at time of stress injection: 146 bpm. Patient continued to exercise for 1 minute(s). Gated Stress SPECT was performed 15 minutes after stress injection. The images were gated to evaluate regional wall motion and calculate left ventricular ejection fracti on. Comments Cardiolite injection at 2 minutes into test. Study Data Post stress, the left ventricular ejection was >55%.. Nuclear Conclusion NON ISCHEMIC ECG RESPONSE NON ISCHEMIC PERFUSION SCAN EF >55% LESS THAN 10% LIKELIHOOD FOR STRESS INDUCED ISCHEMIA
== END | disposition home or self-care (01) ==
LOC: Rad HDHVI 13:32
PROVIDERS: ATTEND Internal Medicine Cardiovascular Disease
DX: I49.1 Atrial premature depolarization (principal); I49.3 Ventricular premature depolarization; R00.0 Tachycardia, unspecified; R06.00 Dyspnea, unspecified; I11.0 Hypertensive heart disease with heart failure; I50.33 Acute on chronic diastolic (congestive) heart failure; I25.2 Old myocardial infarction; E11.9 Type 2 diabetes mellitus without complications; E78.00 Pure hypercholesterolemia, unspecified; I73.9 Peripheral vascular disease, unspecified; I27.20 Pulmonary hypertension, unspecified; R07.89 Other chest pain; R06.02 Shortness of breath; R60.9 Edema, unspecified; F17.210 Nicotine dependence, cigarettes, uncomplicated; Z82.49 Family history of ischemic heart disease and other diseases of the circulatory system
CPT/HCPCS: 78452; 93017; A9500; 96374

== ENCOUNTER → 2024-08-24 | Outpatient (CLI) | payer MEDICARE, MEDICAID ==
--- NOTE | 2024-08-24 13:22 | DVH ---
EXAM: CT HEAD WITHOUT CONTRAST HISTORY: HEAD TRAUMA COMPARISON: CT HEAD WITHOUT CONTRAST on DOS: 06/23/24, CT HEAD WITHOUT CONTRAST on DOS: 06/11/24 TECHNIQUE: Axial images of the head were obtained and reformatted in coronal and sagittal planes. All CT scans at this medical facility are performed using dose modulation techniques as appropriate t o a performed exam including the following: Automated exposure control was utilized; adjustment of th e MA and/or KV according to patient size; and use of iterative reconstruction technique. CT Dose: CTDI volume is 56.99 mGy. Dose-length product is 1025.75 mGy*cm FINDINGS: There is no evidence of acute intracranial hemorrhage, mass, mass effect midline shift. There is no h ydrocephalus or extra-axial fluid collection. There are chronic microvascular ischemic changes in the supratentorial white matter. Henley-white matter differentiation is maintained. The visualized paranasal sinuses and mastoid air cells are clear. The calvarium is intact. IMPRESSION: 1. No acute intracranial process. HS:Y
== END | disposition home or self-care (01) ==
LOC: Rad HDHVI 12:50
PROVIDERS: ATTEND Internal Medicine Cardiovascular Disease
DX: S09.90XA Unspecified injury of head, initial encounter (principal); I67.82 Cerebral ischemia; X58.XXXA Exposure to other specified factors, initial encounter; Y93.89 Activity, other specified; Y92.89 Other specified places as the place of occurrence of the external cause; Y99.8 Other external cause status
CPT/HCPCS: 70450

== ENCOUNTER → 2024-10-01 | Outpatient (CLI) | payer MEDICARE, MEDICAID ==
--- NOTE | 2024-10-01 13:42 | DVH ---
CLINICAL INDICATION: SHOULDER PAIN TECHNIQUE: 3 radiographic views of the right shoulder were obtained. Comparison: None FINDINGS/IMPRESSION: There is no evidence of acute fracture or dislocation. The visualized joint space is well maintained. The alignment is anatomical. There is no radiopaque foreign body.
== END | disposition home or self-care (01) ==
LOC: Rad HDHVI 12:50
PROVIDERS: ATTEND Internal Medicine Cardiovascular Disease
DX: M25.511 Pain in right shoulder (principal)
CPT/HCPCS: 73030

== ENCOUNTER → 2025-05-18 | Outpatient (CLI) | payer MEDICARE, MEDICAID | END | disposition home or self-care (01) | LOC: Rad HDHVI 12:14 | PROVIDERS: ATTEND Internal Medicine Cardiovascular Disease | DX: I11.0 Hypertensive heart disease with heart failure (principal); I50.9 Heart failure, unspecified; I73.9 Peripheral vascular disease, unspecified | CPT/HCPCS: 93925 ==

== ENCOUNTER → 2025-05-18 | Outpatient (CLI) | payer MEDICARE, MEDICAID ==
[2025-05-18 14:02] LABS: Hematocrit 42.4 % (36.0-46.0); Hemoglobin 14.2 g/dL (12.2-16.2); Mean Corpuscular Hemoglobin 32.2 pg (28.0-32.0); Mean Corpuscular Volume 96.5 fL (80.0-100.0); Nucleated Red Blood Cells % 0.1 %
[2025-05-18 14:16] LABS: Alanine Aminotransferase 18 U/L (7-40); Albumin 4.4 g/dL (3.2-4.8); Alkaline Phosphatase 60 U/L (46-116); Anion Gap 8 (5-15); BUN/Creatinine Ratio 11.7 (10.0-20.0); Bilirubin, Direct 0.2 mg/dL (<0.3); Bilirubin, Total 0.5 mg/dL (0.2-1.0); Blood Urea Nitrogen 11 mg/dL (9-23); Calcium 9.2 mg/dL (8.7-10.4); Carbon Dioxide 27 mmol/L (20-31); Cholesterol 153 mg/dL (< 200); Glucose 75 mg/dL (74-106); Potassium 3.9 mmol/L (3.5-5.1); Total Protein 7.2 g/dL (5.7-8.2); Triglycerides 71 mg/dL (< 150)
[2025-05-18 14:17] LABS: Chloride 110 mmol/L (98-107); HDL Cholesterol 73 mg/dL (40-59); Sodium 145 mmol/L (136-145)
== END | disposition home or self-care (01) ==
LOC: LAB 13:27
PROVIDERS: ATTEND Internal Medicine Cardiovascular Disease
DX: I11.0 Hypertensive heart disease with heart failure (principal); I50.9 Heart failure, unspecified; E11.9 Type 2 diabetes mellitus without complications; E55.9 Vitamin D deficiency, unspecified; D64.9 Anemia, unspecified; N39.0 Urinary tract infection, site not specified; R00.2 Palpitations
CPT/HCPCS: 36415; 80048; 80061; 80076; 83036; 84443; 85025